=== PATIENT | female | born 1960 | race Caucasian/White ===

== ENCOUNTER → 2016-05-10 | Outpatient (CLI) | payer MEDICARE ==
--- NOTE | 2016-05-10 12:53 | MM ---
Reason for exam: screening (asymptomatic). Last mammogram was performed 1 year and 4 months ago. History: Patient is postmenopausal and is nulliparous. Family history of breast cancer in maternal aunt, breast cancer in cousin, and premenopausal breast cancer in mother at age 40. Took progesterone for 5 years. Took unspecified hormones for 3 years beginning at age 41. Physical Findings: A clinical breast exam by your physician is recommended on an annual basis and results should be correlated with mammographic findings. MG 3D Screening Mammo W/Cad Bilateral CC and MLO view(s) were taken. Prior study comparison: December 30, 2014, bilateral MG screening mammo w CAD. December 16, 2013, bilateral MG screening mammo w CAD. There are scattered fibroglandular densities. Finding: There are typically benign round, regional calcifications in the anterior position of the left breast. There is no discrete abnormality. ASSESSMENT: Benign, BI-RAD 2 RECOMMENDATION: Routine screening mammogram of both breasts in 1 year.
--- NOTE | 2016-05-10 20:56 | WWHP ---
DATE OF SERVICE: 05/10/2016 CHIEF COMPLAINT: Patient is here for her routine gynecologic exam and mammogram. HPI: This is a 55-year-old G0 with an LMP of 2014. The patient is without gynecologic complaints. PAST MEDICAL HISTORY: Arthritis, chronic back problems, Crohn's disease, psoriasis, and elevated cholesterol. MEDICATIONS: 1. Pentasa 500 mg 2 t.i.d. 2. Meloxicam 15 mg daily. 3. Simvastatin 40 mg daily. 4. Zetia 10 mg daily. 5. Pantoprazole 40 mg daily. 6. Lidocaine patch 5% p.r.n. 7. Voltaren 1% gel as directed. 8. Mometasone 0.1% cream as directed. 9. Gabapentin 300 mg b.i.d. ALLERGIES: CODEINE WHICH CAUSED PRURITUS. Past surgical and STOCK CHECKERER histories are unchanged from the 2015 H&P. FAMILY HISTORY: Unchanged from the 2014 H&P. SOCIAL HISTORY: She denies tobacco and alcohol use. She does use medical marijuana. 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 REVIEW OF SYSTEMS: She has gained about 5 pounds over the last year. RESPIRATORY: She is getting over a cold. She denies cardiac or GI problems. PHYSICAL EXAM: Blood pressure 116/77. Height 5 feet 4 inches. Weight 213 pounds. Temperature 98.4, pulse 65. This is a well-developed, well-nourished white female who is alert and oriented x3 in no acute distress. HEENT is within normal limits. NECK: Supple without mass or thyromegaly. CHEST AND LUNGS: Clear to auscultation. HEART: Regular rate and rhythm. Breasts are without mass or discharge. There is an 8 to 9 millimeter small benign-appearing inclusion cyst in the lower aspect of the right breast and this is smooth and firm and nontender and nonerythematous. The patient states it has been there for a long time. Axillary exam is negative for adenopathy. BACK: Negative for CVA tenderness. ABDOMEN: Soft, nontender, without palpable masses and is moderately obese. PELVIC EXAM: Normal external genitalia with minimal atrophy. Cervix and vagina appear normal with minimal atrophy. There is no evidence of prolapse. The uterus is midposition, nongravid size and nontender. There are no palpable adnexal masses or tenderness. Rectovaginal exam is negative for mass or tenderness and is negative for occult blood. EXTREMITIES: Nontender. IMPRESSION: A 55-year-old menopausal female with normal gynecologic exam. PLAN: 1. Pap smear was deferred, since she had normal one less than 2 years ago. 2. Self-breast examination was discussed. 3. Mammogram will be done today. 4. Osteoporosis prevention was discussed. 5. She will return in one year. SABINE
== END | disposition home or self-care (01) ==
LOC: WWCWWP 03-22 09:38
PROVIDERS: ATTEND Obstetrics & Gynecology
DX: Z12.31 Encounter for screening mammogram for malignant neoplasm of breast (principal)
CPT/HCPCS: 77063; G0202

== ENCOUNTER → 2016-10-02 | Outpatient (CLI) | payer OTHER ==
--- NOTE | 2016-10-02 13:24 | US ---
EXAMINATION TYPE: US venous doppler duplex LE LT DATE OF EXAM: 10/02/2016 1:06 PM COMPARISON: NONE CLINICAL HISTORY: M79.662 Pain In Limb. Left leg swelling SIDE PERFORMED: Left TECHNIQUE: The lower extremity deep venous system is examined utilizing real time linear array sonog [place] with graded compression, doppler sonography and color-flow sonography. VESSELS IMAGED: External Iliac Vein (EIV) Common Femoral Vein Deep Femoral Vein Greater Saphenous Vein * Femoral Vein Popliteal Vein Small Saphenous Vein * Proximal Calf Veins (* superficial vessels) Grayscale, color doppler, spectral doppler imaging performed of the deep veins of the left lower extr emity. There is normal flow, compressibility, vascular waveforms left lower extremity. Left Leg: Appears negative for DVT IMPRESSION: No evidence of DVT left lower extremity.
== END ==
LOC: RADUSWWP 12:37
PROVIDERS: ATTEND Family Medicine
DX: I82.402 Acute embolism and thrombosis of unspecified deep veins of left lower extremity (principal)

== ENCOUNTER → 2016-10-17 | Outpatient (CLI) | payer OTHER | END | disposition home or self-care (01) | LOC: LABPAT 09:18 | PROVIDERS: ATTEND Orthopaedic Surgery Orthopaedic Surgery of the Spine | DX: Z01.812 Encounter for preprocedural laboratory examination (principal) | CPT/HCPCS: 36415; 85730; 87070 ==

== ENCOUNTER 2016-10-25 06:07 | Inpatient (IN) | payer MEDICARE, OTHER ==
[2016-10-19 12:38] VITALS: BMI 36.8
[~2016-10-25 06:07] MED LIST: BACITRACIN 50,000 UNIT, POLYMYXIN B 500,000 UNIT in SODIUM CHLORIDE 0.9% IRRIGATIO 1,00... IRRIGATION ONE; DEXAMETHASONE SOD PHOSPHATE 10 MG/ML 1 ML VIAL IV ONE; FAMOTIDINE 20 MG/2 ML VIAL IV PRN; LACTATED RINGERS 1,000 ML IV SCH; LIDOCAINE 1% 20 ML VIAL (10MG/ML) FOR IV START INTRADERMA PRN; SCOPOLAMINE 1.5MG/72HR PATCH TRANSDERM ONE; ceFAZolin 2 GM in SODIUM CHLORIDE 0.9% 100 ML IVPB ONE
[2016-10-25] MEDS ORDERED: ONDANSETRON 4 MG/2 ML VIAL IVP ONE (06:52)
[2016-10-25] MEDS ORDERED: VECURONIUM 10 MG VIAL IV ONE (07:28)
[2016-10-25] MEDS ORDERED: BUPIVACAINE (PF) 0.25% 30 ML VIAL SQ ONE (07:28)
[2016-10-25] MEDS ORDERED: MIDAZOLAM 2 MG/2 ML VIAL ONE (07:28)
[2016-10-25] MEDS ORDERED: LIDOCAINE 0.5%-EPI 1:200,000 50 ML VIAL SQ ONE (07:28)
[2016-10-25] MEDS ORDERED: HEPARIN SODIUM,PORCINE 10,000 UNIT/ML 1 ML VIAL ONE (07:28)
[2016-10-25] MEDS ORDERED: fentaNYL (PF) 50 MCG/ML 2 ML AMP ONE (07:28)
[2016-10-25] MEDS ORDERED: THROMBIN (BOVINE) 5,000 UNIT VIAL TOPICAL ONE (07:28)
[2016-10-25] MEDS ORDERED: SODIUM CHLORIDE 0.9% IRRIG 1,000 ML BTL IRRIGATION ONE (07:28)
[2016-10-25] MEDS ORDERED: ePHEDrine SULFATE/0.9% NACL/PF 50 MG/5 ML SYRINGE IV ONE (07:28)
[2016-10-25] MEDS ORDERED: KETAMINE 10 MG/ML 20 ML VIAL ONE (07:28)
[2016-10-25] MEDS ORDERED: SUCCINYLCHOLINE CHLORIDE 100 MG/5 ML SYR IV ONE (07:28)
[2016-10-25] MEDS ORDERED: LIDOCAINE 1% INJ 10MG/ML (20 ML MDV) ONE (07:28)
[2016-10-25] MEDS ORDERED: GELATIN SPONGE,ABSORB (LARGE) 1 EACH SPONGE TOPICAL ONE (07:28)
[2016-10-25] MEDS ORDERED: PHENYLEPHRINE-0.9% NACL SYG 1 MG/10 ML SYRINGE ONE (07:28)
[2016-10-25] MEDS ORDERED: PROPOFOL 10 MG/ML 20 ML VIAL IV ONE (07:28)
--- NOTE | 2016-10-25 08:43 | XR ---
EXAMINATION TYPE: XR lumbar spine 1V DATE OF EXAM: 10/25/2016 COMPARISON: None HISTORY: 56-year-old female heart replacement TECHNIQUE: Single portable intraoperative crosstable lateral view FINDINGS: Metallic needle projecting along the posterior aspect of a lower lumbar vertebral body. There is a tr ansitional lumbosacral segment. The metal instrument is opposite the superior endplate of the vertebr al body that shows mild anterior subluxation. IMPRESSION: Metallic needle opposite the superior endplate of the lower lumbar vertebral body that shows grade 1 anterolisthesis.
[2016-10-25] MEDS ORDERED: LACTATED RINGERS 1,000 ML IV ONE ×3 (10:30→10:51)
[2016-10-25] MEDS ORDERED: MAGNESIUM HYDROXIDE 2,400 MG/10 ML CUP PO PRN (11:16)
[2016-10-25] MEDS ORDERED: HYDROmorphone PCA 5 MG/25 ML SYRINGE IV PRN (11:16)
[2016-10-25] MEDS ORDERED: DIAZEPAM 5 MG TAB PO PRN (11:16)
[2016-10-25] MEDS ORDERED: HYDROcodone/APAP 5-325MG 1 EACH TAB PO PRN (11:16)
[2016-10-25] MEDS ORDERED: BENZOCAINE/MENTHOL LOZENG 1 EACH LOZENGE MUCOUS MEM PRN (11:16)
[2016-10-25] MEDS ORDERED: HYDROmorphone 1 MG/ML 1 ML SYRINGE IVP PRN (11:16)
[2016-10-25] MEDS ORDERED: traMADol 50 MG TAB PO PRN (11:21)
--- NOTE | 2016-10-25 11:32 | P.OP ---
Date of Procedure: 10/25/16 Preoperative Diagnosis: Grade 3 spondylolisthesis L5-S1, spinal stenosis L4 5 L5-S1, degenerative disc disease, back pain, lower extremity radiculopathy Postoperative Diagnosis: Same Procedure(s) Performed: Implants: Anesthesia: GETA Pathology: none sent Condition: stable Disposition: PACU Indications for Procedure: Operative Findings: Description of Procedure: BRIEF OPERATIVE NOTE Preoperative Diagnosis: Grade 3 spondylolisthesis L4 5, spinal stenosis L3 4 L4 5, degenerative disc disease, low back, lower extremity radiculopathy Postoperative Diagnosis: Same Procedure: Laminectomy and decompression with wide bilateral foraminotomy and facetectomy L4 5 L3 4 Posterior lateral decompression and fusion L3 4 L4 5 Transforaminal lumbar interbody fusion for a 360 fusion L3 4 L4 5 Discectomy for decompression L3 4 L4 5 Placement of interbody graft L3 4 L4 5 Local autogenous bone grafting Bone marrow aspiration via the pedicles at L3 4 and 5 Use of Cell Saver Use of bone graft extenders Use of neuro monitoring Surgeon: Dr. Snowden Human Capital Consultant: Moreno PEÑA who is present throughout the entire the case persistence during positioning, dissection, exposure, visualization, and all crucial elements of the case as well as closure. Anesthesia: General anesthesia Estimated blood loss: Approximately 350 mL with greater than 100 given back through Cell Saver Complications: None apparent Components implanted: K2[employer] [place] pedicle screw system with 6 screws measuring 6.5 mm in diameter to rods one cross-link and [place] interbody cages with osteo-amp bone sponge and fibrous cancellus bone to supplemental local autogenous bone graft , Disposition: To recovery room in good stable condition. OPERATIVE INDICATIONS The patient has had long-standing issues in their lower back and lower extremities. she is found have a severe spondylolisthesis at L4 5. She had complete disc space loss at that level and evidence of severe stenosis at L3 4 and L4 5 I correlated well with her low back and lower extremity symptoms. She is having worsening symptoms and progressive debility due to her low back. He is The patient has been through conservative treatment. We discussed various treatment options including surgery, and the patient wishes to proceed with surgery We discussed the risk, patient's alternatives and benefits of surgery including but not limited to, risk of bleeding risk of infection, risk of need for further surgery, risk of decreased, loss of motion, muscle function, malunion nonunion, hardware failure, nerve damage, paralysis, heart attack, blindness and . OPERATIVE SUMMARY After discussing all the risks, patient alternatives and benefits at length, the patient elected to proceed with surgical intervention, signed informed consent, and presented for their procedure. The patient was seen and examined in the preoperative holding area and the surgical site was marked. The patient was given antibiotics and brought to the operating room. The patient was sedated and intubated by anesthesia in standard fashion. The patient was positioned on to the operating room table in a prone position on the appropriate frame which was well-padded and well molded. We were careful to pad any bony prominences and pressure points. We were careful to maintain the patient's cervical spine and good neutral alignment and position throughout. The patient was prepped and draped in a normal standard fashion. An appropriate timeout and keystone protocol performed. We were able to proceed with the surgery. The local wound area was infiltrated with local anesthetic. An incision was made at the midline longitudinally over the appropriate levels at L3 4 and L4 5 . Dissection was taken down subcutaneously to the level of the fascia which was split midline. Dissection was taken over the lamina bilaterally over the facet joints and to the transverse processes. Intraoperative x-ray was taken which showed a marker at the appropriate level at L4 and it seemed as though the L5 level may have been a transitional level with S1 as it did seem to have some evidence of formation of sacral ala for the purpose of the case and inconsistency with the MRI reading refer to the most caudal level as L5. With the appropriate level positively confirmed, we were able to proceed with placement of the pedicle holes and screws. The patient had all their twitches back. The wound was copiously irrigated and suctioned dry as had been done periodically throughout the case. Screw holes were established similarly at each level. A sharp awl was used to establish the starting hole. It was palpated and found to have good for ramey and good base. A monitored Steffee probe was used to establish the pedicle hole. It was positioned so there was no stimulation at 12 mA. The hole was palpated and found to have good for ramey and a good base. The hole was tapped with the appropriate sized tap. The transverse process or sacral ala was decorticated with a high-speed bur. at the pedicle holes and was able to pull some bone marrow aspirate to be used to mix with the allograft bone later in the case. I was able to use these holes to place the appropriate size screw and good alignment and good position with good bony purchase. When the screws were inserted there were stimulated, and found to have no stimulation at 20 mA. I was able to turn my attention to the decompression. the patient had an obvious Pimentel fragment and spondylolysis with spondylolisthesis at L4 5. Degenerative the Pimentel fragment was removed and used for local autogenous bone grafting. This gave good central decompression however there was severe foraminal decompression at both levels and I had to perform wide bilateral foraminotomies remove large osteophytes and partial facetectomy bilaterally to get good posterior decompression. decompression was performed with a combination of rongeurs, curettes, Kerrison rongeurs and a ball-tip feeler. All of the bone that was removed was stripped and morcellized for use as autogenous bone graft later in the case. I was able to obtain good central decompression as well as wide bilateral foraminal decompression. There is no evidence of dural tear or leak. Good hemostasis was maintained. The wound was irrigated and suctioned dry. I performed a complete facetectomy at the appropriate level on the most symptomatic side on the left. . All bone that was removed was saved for local autogenous bone grafting. I was able to gain access to the disc space at the appropriate level/levels. Good hemostasis was maintained. I was able to protect the neurologic structures. Note was made of some disc protrusion. We were able to get space at L4 5 nicely opened. A discectomy was performed. This provided further decompression. I was also able to perform complete discectomy and endplate preparation with a combination of pituitary curettes, rasps and scrapers. With the interbody space prepared, I was able to do appropriate sizing. The appropriate size cage was chosen. The wound was irrigated and suctioned dry. The interbody space was packed with local autogenous bone graft and a small portion of bone graft substitute, as was the cage itself. Protecting the soft tissue structures, I was able place the cage in good alignment and good position with good fit and fill. There is no evidence of extrusion of the graft material nor protrusion of the interbody device. The wound was irrigated and suctioned dry. this was done similarly at L3 4 after L4 5 was done. During the disc space expiration at L3 4 I did sandoval through the anterior annulus and was some bleeding into the disc space at that point. The patient's blood pressure was monitored closely with anesthesia and there was good stability in her blood pressure so there was a short-term drop of her blood pressure that lasted only a couple of minutes and then recovered well and stayed stable. There is no further bleeding into the wound site and appear to be stable and we're able to carry on. With the hardware intact, intraoperative x-ray was again taken which showed good alignment and position of the hardware at the appropriate levels at L3 4 and 5. We were then able to measure, contour and place the rods and appropriate hardware bilaterally. I was able to place capcrews, tighten them down, and torque them off appropriately. The sheared portion was counted and accounted for. With this intact I was able to place the local otitis bone graft with additional bone graft enhancer as necessary into the posterior lateral gutters bilaterally. With the bone graft intact, a stable construct, and good decompression at the appropriate levels, we were able to proceed with closure. Good hemostasis was maintained. There is no evidence of dural tear or leak. The fascia was closed for a watertight closure. The subcutaneous tissue was closed over a superficial drain. The subcuticular tissue was closed with absorbable suture. The wound was cleaned and dried and dressed with the appropriate dressing. The drapes were broken down. The patient was gently rolled back onto their hospital bed being careful to maintain their cervical spine and good neutral alignment and position. They were woken up by anesthesia , extubated, and brought to the recovery room in good stable condition. The patient will be admitted to the hospital for appropriate postoperative care , medical management and monitoring. We will continue to follow them closely about the postoperative course
[2016-10-25] MEDS: HYDROmorphone 1 MG/ML 1 ML SYRINGE IVP PRN ×5 (11:55→12:27)
--- NOTE | 2016-10-25 12:12 | XR ---
EXAMINATION TYPE: XR lumbar spine 2 or 3V DATE OF EXAM: 10/25/2016 COMPARISON: Earlier today HISTORY: 56-year-old female heart replacement TECHNIQUE: AP and crosstable lateral views FINDINGS: Interval posterior and interbody fusion hardware placement in the lower lumbar spine. There is a carter sitional lumbosacral segment again demonstrated. For the purposes of this exam, it will be denoted as a sacralized L5. Stable grade 1 anterolisthesis at L4-L5. Orthopedic hardware appears uncomplicated. IMPRESSION: Uncomplicated appearance to the posterior and interbody fusion at the lower lumbar spine/lumbosacral junction. Transitional segment noted. Stable grade 1 anterolisthesis above the transitional segment.
[2016-10-25] MEDS ORDERED: HYDROmorphone 1 MG/ML 1 ML SYRINGE IVP ONE (12:24)
[2016-10-25 13:50] LABS: Basophils % (A) 0 %; CH 31.1; CHCM 32.5; Eosinophils % (A) 0 %; HCT 38.1 % (34.0-46.0); HDW 2.43; Luc % (Auto) 1; Lymphocytes # (A) 0.8 k/uL (1.0-4.8); Lymphocytes % (A) 6 %; MCH 30.4 pg (25.0-35.0); MCHC 31.7 g/dL (31.0-37.0); Mean Platelet Volume 8.1; Monocytes # (A) 0.5 k/uL (0-1.0); Monocytes % (A) 4 %; Neutrophils # (A) 11.8 k/uL (1.3-7.7); Neutrophils % (A) 89 %; RBC 3.96 m/uL (3.80-5.40); RDW 14.5 % (11.5-15.5); WBC 13.2 k/uL (3.8-10.6); WBC (Perox) 13.69
[2016-10-25] MEDS: BALSALAZIDE DISODIUM 750 MG CAPSULE PO SCH ×2 (18:06→20:30)
[2016-10-25] MEDS: SODIUM CHLORIDE 0.9% 1,000 ML IV SCH (18:07)
[2016-10-25] MEDS: ceFAZolin 2 GM in SODIUM CHLORIDE 0.9% 100 ML IVPB SCH ×2 (18:11→23:25)
[2016-10-25] MEDS: DOXEPIN 25 MG CAP PO SCH (20:31)
[2016-10-26] MEDS ORDERED: NALOXONE 0.4 MG/ML 1 ML VIAL IV PRN (01:04)
[2016-10-26] MEDS: HYDROmorphone PCA 5 MG/25 ML SYRINGE IV PRN ×3 (01:17→23:41)
[2016-10-26] MEDS: SODIUM CHLORIDE 0.9% 1,000 ML IV SCH ×2 (04:09→21:27)
[2016-10-26 06:58] LABS: Basophils % (A) 0 %; CH 30.4; CHCM 32.6; Eosinophils # (A) 0.1 k/uL (0-0.7); Eosinophils % (A) 1 %; HCT 31.3 % (34.0-46.0); HDW 2.49; HGB 10.1 gm/dL (11.4-16.0); Luc # (Auto) 0.17; Luc % (Auto) 2; Lymphocytes # (A) 1.1 k/uL (1.0-4.8); Lymphocytes % (A) 14 %; MCH 30.2 pg (25.0-35.0); MCHC 32.2 g/dL (31.0-37.0); MCV 93.7 fL (80.0-100.0); Mean Platelet Volume 7.1; Monocytes # (A) 0.5 k/uL (0-1.0); Monocytes % (A) 6 %; Neutrophils # (A) 6.3 k/uL (1.3-7.7); Neutrophils % (A) 77 %; RBC 3.34 m/uL (3.80-5.40); RDW 14.2 % (11.5-15.5); WBC 8.2 k/uL (3.8-10.6); WBC (Perox) 8.05
[2016-10-26 07:13] LABS: Anion Gap 4 mmol/L; Blood Urea Nitrogen 12 mg/dL (7-17); Carbon Dioxide 30 mmol/L (22-30); Chloride 104 mmol/L (98-107); Glucose 111 mg/dL (74-99); Non-African American GFR(MDRD) >60 (>60 ml/min/1.73 sqM); Potassium 4.1 mmol/L (3.5-5.1); Sodium 138 mmol/L (137-145)
[2016-10-26] MEDS: BALSALAZIDE DISODIUM 750 MG CAPSULE PO SCH ×3 (07:40→21:29)
[2016-10-26] MEDS: PANTOPRAZOLE 40 MG TABLET PO SCH (07:40)
[2016-10-26] MEDS: EZETIMIBE 10 MG TAB PO SCH (07:40)
[2016-10-26] MEDS: HYDROmorphone 1 MG/ML 1 ML SYRINGE IVP PRN ×3 (07:40→19:13)
[2016-10-26] MEDS: ATORVASTATIN 20 MG TAB PO SCH (07:40)
[2016-10-26] MEDS: ceFAZolin 2 GM in SODIUM CHLORIDE 0.9% 100 ML IVPB SCH (07:43)
[2016-10-26] MEDS: SENNOSIDES-DOCUSATE SODIUM 1 EACH TAB PO SCH (07:43)
--- NOTE | 2016-10-26 13:15 | CONS ---
This is a 56-year-old white female that was admitted for lumbar surgery. She had a transforaminal lumbar interbody L3-L4, L4-L5 fixation. She had severe back pain for many years and after exhausting all other entities including physical therapy, epidural injections patient had surgery. She has a past medical history of surgery including bilateral carpal tunnel and also epidural injections x3. Her basic medical history is that of: 1. Severe lumbar degenerative disc disease and instability. 2. GE reflux. 3. Hyperlipidemia. 4. Ulcerative colitis. SOCIAL HISTORY: She is a nonsmoker, but she does smoke marijuana from time to time. No alcohol. No other drugs. Her medications include simvastatin 20 daily, Mobic 15 daily, Lidoderm patch to lower back daily, Protonix daily, Voltaren gel apply daily to her hands, Zetia 10 mg a day, Pentasa 500 mg three times a day, Tramadol 50 mg 1 to 2 every 6 hours for pain and ( ) 20 mg at bedtime. REVIEW OF SYSTEMS: CARDIOPULMONARY: No shortness of breath, no chest pain, no orthopnea, no paroxysmal nocturnal dyspnea. GI: No hematemesis, melena, hematochezia. Negative bleeding. : Negative. NEUROMUSCULAR: Painful back with decreased strength in her legs. Blood pressure was 130/80, temperature is 98.6, heart rate is 65, respiratory rate is 16. EYES: Pupils are equal, round and reactive to light and accommodation. ENT: Shows tympanic membranes and pharynx to be negative. NECK: Supple with midline trachea. CHEST: Essentially clear to auscultation. HEART: Sinus rhythm with no murmur. ABDOMEN: Soft with decreased bowel sounds bilaterally in all four quadrants, no palpable masses. LOWER EXTREMITIES: She has no Homans bilaterally. Lab work shows hemoglobin 10 from 12. Basic chem-17 is within normal limits. WBC 8.2. ASSESSMENT: 1. Post surgery day 1 of the lumbar spine. 2. History of gastroesophageal reflux. 3. History of hyperlipidemia, which has been stable. 4. Generalized osteoarthritis. 5. Ulcerative colitis. PLAN: Patient is stable at this point. Pain control is adequate. Will follow her accordingly. , thank you for the consult. [facility]
[2016-10-26] MEDS: ONDANSETRON 4 MG/2 ML VIAL IVP PRN (15:52)
--- NOTE | 2016-10-26 17:27 | P.PN ---
Progress Note - Text Postoperative day #1 Patient is seen and examined today at bedside. The patient has some pain around the surgical site as expected, but she has been getting up and around and feels her back has made significant improvement and had a significant change with her surgery already. Pain is being controlled with medication. She is able tolerate her soft diet and regular diet. She does have history of Crohn's disease Physical Exam Afebrile with stable vital signs her blood pressure has remained stable without any drop Abdomen is soft nontender. Chest has good excursion deep and space expiration she is nontender to palpation of her abdomen she has no rebound rigidity or guarding The incision site is clean dry and intact. No erythema there is no purulence. The drain is intact Extremities have not had neurologic change from prior to surgery. She has sustained dorsal flexion plantarflexion and EHL intact Calves and thighs were soft nontender without evidence of DVT. Assessment/Plan Postoperative day #1 status post decompression and fusion L3 4 L4 5 for her severe spondylolisthesis and spinal stenosis Patient is progressing as expected from the surgery. She has made good progress with her mobility already. Her vital signs or staying stable without any evidence of decreased or bleeding. We will continue to increase the patient's mobilization with therapy. She does have history of Crohn's disease and prefers to have immature shakes with meals and we will order that for her We will continue pain control with oral or IV medications. We'll continue to follow patient closely.
[2016-10-26] MEDS: DOXEPIN 25 MG CAP PO SCH (21:29)
[2016-10-27 07:09] LABS: Basophils % (A) 0 %; CH 30.8; CHCM 32.5; Eosinophils % (A) 0 %; HCT 27.1 % (34.0-46.0); HDW 2.48; HGB 8.8 gm/dL (11.4-16.0); Luc # (Auto) 0.19; Luc % (Auto) 2; Lymphocytes % (A) 10 %; MCH 31.1 pg (25.0-35.0); MCHC 32.6 g/dL (31.0-37.0); MCV 95.4 fL (80.0-100.0); Monocytes # (A) 0.7 k/uL (0-1.0); Monocytes % (A) 7 %; Neutrophils % (A) 81 %; RBC 2.85 m/uL (3.80-5.40); RDW 14.6 % (11.5-15.5); WBC 9.9 k/uL (3.8-10.6); WBC (Perox) 9.61
[2016-10-27] MEDS: BALSALAZIDE DISODIUM 750 MG CAPSULE PO SCH ×3 (07:46→22:00)
[2016-10-27] MEDS: ATORVASTATIN 20 MG TAB PO SCH (07:46)
[2016-10-27] MEDS: PANTOPRAZOLE 40 MG TABLET PO SCH (07:46)
[2016-10-27] MEDS: EZETIMIBE 10 MG TAB PO SCH (07:46)
[2016-10-27] MEDS: SENNOSIDES-DOCUSATE SODIUM 1 EACH TAB PO SCH (07:47)
--- NOTE | 2016-10-27 09:07 | P.PN ---
Progress Note - Text Orthopedic Spine Patient is a pleasant 56-year-old female who is seen and examined at the bedside following posterior lateral decompression and fusion performed Sunday. Patient states they are doing well postsurgically. She does continue to have some pain at the surgical site, which is expected. She states her lower extremities feels significantly better postsurgically. She is not currently spearing sitting lower extremity radiculopathy. She not currently experiencing any lower extremity swelling. She has been able to ambulate to the restroom without significant difficulty. She has continued to use her POWER PLANT OPERATOR and receive IV and oral pain medications for pain control. She does feel she is making some improvements in terms of her pain but states she continues to have significant pain in the lumbar spine. She does have a history of Crohn's disease. She has not been eating much food. She has been taking in Ensure. She is having some abdominal discomfort most significant right lower quadrant and feels she may need to have a bowel movement soon but has been unable to do so at this point postsurgically. Currently does not complain of nausea, vomiting, fever, or chills. Patient states her pain has been adequately controlled. Patient is eating and voiding freely without difficulty. Blood pressures have continued to remain stable without evidence of significant decrease. Blood pressures taken on 10/27/2016 have been 137/63 and 127/68. Physical Exam Lumbar Fusion: Status post surgical day number 2 Patient is awake, alert, and oriented 3 Vital signs stable Good chest excursion with deep inspiration and expiration Abdomen soft; no obvious distention; some comfort with palpation right lower quadrant Dorsiflexion, plantarflexion, and extensor hallucis longus positive sustained bilaterally No signs or symptoms of DVT; no calf pain; pneumatic cuffs not currently intact bilateral lower extremities Dressing is clean, dry, and intact; no erythema, purulence, or signs of infection Dressing is removed during physical examination changed to nonstick Telfa and Tegaderm No active drainage at the incision site or Hemovac drain site Hemovac drain well secure; Hemovac drain discontinued during physical examination Neurovascularly intact bilaterally lower extremities Pertinent studies: Pertinent studies taken on 10/25/2016: WBC 13.2 Hemoglobin 12.0 Neutrophils 11.8 Pertinent studies taken on 10/26/2016: W BC 8.2 Hemoglobin 10.1 Neutrophils 0.3 Pertinent studies taken on 10/27/2016: WBC 9.9 Hemoglobin 8.8 Neutrophils 8.0 Assessment: Posterior lateral decompression and fusion L3-4 and L4-5 Transforaminal lumbar interbody fusion L3-4 and L4-5 History of Crohn's disease Plan: 1. Ambulate as tolerated; work with Physical Therapy to increase mobilization 2. Continue pain control with IV and oral medications; we will plan to discontinue the POWER PLANT OPERATOR and begin weaning down the IV pain medication in anticipation for discharge home over the next 1-2 days 3. Dressing changed to Telfa and Tegaderm; Hemovac drain discontinued 4. Medical management can continue to manage patient for patient's other medical issues 5. Due to her current inability to have a bowel movement postsurgically and history of Crohn's disease, we'll plan to increase her Senokot to 1 tab twice per day for constipation; she may continue to take milk of magnesia as prescribed as needed for constipation 6. We will also continue to watch her hemoglobin level as this level has dropped from 12.0, to 10.0, down to 8.8 over the past lab draws 7. We will continue to follow the patient closely; if the patient continues to progress, we will plan for her discharge home over the next 1-2 days once we have been able to discontinue IV narcotic pain medication 8. Patient can follow-up with Moreno Schwarz PA-C or Dr. Keanu Snowden at [facility] in 2-3 weeks following discharge
[2016-10-27] MEDS: HYDROmorphone 1 MG/ML 1 ML SYRINGE IVP PRN ×3 (11:01→20:16)
[2016-10-27] MEDS: ONDANSETRON 4 MG/2 ML VIAL IVP PRN ×2 (11:05→15:34)
[2016-10-27] MEDS: HYDROcodone/APAP 5-325MG 1 EACH TAB PO PRN (12:39)
[2016-10-27] MEDS: SENNOSIDES-DOCUSATE SODIUM 1 EACH TAB PO PRN (15:45)
[2016-10-27] MEDS ORDERED: POLYETHYLENE GLYCOL 3350 17 GM POWD.PACK PO STA (16:19)
[2016-10-27] MEDS ORDERED: ACETAMINOPHEN TAB 500 MG TAB PO PRN (19:50)
[2016-10-27] MEDS ORDERED: BISACODYL 10 MG SUPP RECTAL STA (19:54)
[2016-10-27] MEDS ORDERED: metroNIDAZOLE-NS PMX 500 MG in SALINE 1 100ML.BAG IVPB SCH (22:00)
[2016-10-27] MEDS: metroNIDAZOLE-NS PMX 500 MG in SALINE 1 100ML.BAG IVPB SCH (22:00)
[2016-10-27] MEDS: DOXEPIN 25 MG CAP PO SCH (22:00)
[2016-10-27] MEDS: SODIUM CHLORIDE 0.9% 1,000 ML IV SCH (23:34)
[2016-10-28] MEDS: CIPROFLOXACIN HCL 500 MG TAB PO SCH ×3 (01:06→21:46)
[2016-10-28] MEDS: HYDROcodone/APAP 5-325MG 1 EACH TAB PO PRN ×2 (01:12→08:16)
[2016-10-28] MEDS: metroNIDAZOLE-NS PMX 500 MG in SALINE 1 100ML.BAG IVPB SCH ×2 (04:48→12:30)
[2016-10-28] MEDS: SODIUM CHLORIDE 0.9% 1,000 ML IV SCH ×2 (06:31→20:54)
[2016-10-28 06:42] LABS: Basophils % (A) 0 %; CHCM 32.7; Eosinophils % (A) 1 %; HCT 27.6 % (34.0-46.0); HDW 2.58; HGB 8.8 gm/dL (11.4-16.0); Luc # (Auto) 0.14; Luc % (Auto) 2; Lymphocytes # (A) 0.9 k/uL (1.0-4.8); Lymphocytes % (A) 12 %; MCH 30.4 pg (25.0-35.0); MCHC 31.9 g/dL (31.0-37.0); MCV 95.2 fL (80.0-100.0); Monocytes # (A) 0.5 k/uL (0-1.0); Monocytes % (A) 7 %; Neutrophils # (A) 5.8 k/uL (1.3-7.7); Neutrophils % (A) 79 %; RDW 14.5 % (11.5-15.5); WBC 7.4 k/uL (3.8-10.6); WBC (Perox) 7.81
--- NOTE | 2016-10-28 07:32 | PN ---
A 56 -year-old white female came in and had lumbar surgery by Dr. Snowden and she says she is much improved today with much less pain. She still has not had a bowel movement. Minimal amount of gas. Her surgery was a post decompression and fusion of L3-4, L4-L5 for severe spondylolisthesis and spinal stenosis. At this period of time, she said she was feeling much better. Laboratory today showed hemoglobin down to 8.8 and her WBC was 9.9. Review of systems: Cardiopulmonary: No shortness of breath. No chest pain. No orthopnea. No paroxysmal nocturnal dyspnea. GI: No hematemesis, melena, hematochezia. Flatulence but no bowel movement. Her oral intake has just been liquids and very minimal soft food. has been normal. Neuromuscular: She says she has much less discomfort going down her legs. Still having a fair amount of back pain. Integumentary is negative. Endocrine is negative. Vital signs: Blood pressure 127/68, heart rte is in the 90s. Temperature 98.5. Respiratory rate is 18. Eyes: PERRLA. Some decrease in pupil conjunctivae. ENT is within normal limits with dry mouth. Neck is supple with midline trachea. Chest is essentially clear to auscultation. Heart is sinus rhythm. Abdomen is soft. Decent bowel sounds. No palpable organomegaly. No masses. Lower extremities has minimal swelling. Negative Homans bilaterally. ASSESSMENT: 1. Postop decompression fusion L3, L4, L4-L5 for severe spondylolisthesis and spinal stenosis. 2. History of Crohns disease which is stable at this time. 3. Gastroesophageal reflux disease. 4. Hyperlipidemia. The patient seems to be doing well. I reviewed all her medications from yesterday. They are the same. We will follow her accordingly with pain control with the plan of probable discharge in the a.m. MTDD
[2016-10-28] MEDS: PANTOPRAZOLE 40 MG TABLET PO SCH (08:17)
[2016-10-28] MEDS: ATORVASTATIN 20 MG TAB PO SCH (08:17)
[2016-10-28] MEDS: BALSALAZIDE DISODIUM 750 MG CAPSULE PO SCH ×3 (08:17→21:47)
[2016-10-28] MEDS: EZETIMIBE 10 MG TAB PO SCH (08:18)
--- NOTE | 2016-10-28 10:57 | P.DS ---
Providers Date of admission: 10/25/16 06:07 Expected date of discharge: 10/28/16 Attending physician: Charisma Snowden Consults: 10/25/16 11:16 Consult Physician Routine Consulting Provider: Michael Pascal Consult Reason/Comments: Medical management Do you want consulting provider notified?: Yes Primary care physician: Michael Pascal - Discharge Diagnosis(es) (1) Spondylolisthesis Current Visit: Yes Status: Acute Hospital Course: This is a 56-year-old female with known history of severe spondylolisthesis at L4/5 that was causing progressive debility. The patient presents for evaluation. After discussion and consideration patient elects to proceed with posterior lateral decompression and fusion. The patient is seen preoperatively by Dr. Snowden and cleared for surgery. Patient is admitted to [facility] on 10/25/2016 for posterior lateral decompression and fusion. The procedures performed without complication or sequelae. The patient is doing well postoperatively. Labs and vital signs are stable on day of discharge. On day of discharge patient's dressing is clean, dry and intact. There is minimal erythema. There is no drainage noted at this time. Neurovascular status to bilateral lower extremities are intact. Calves are soft and nontender. Patient is discharged home in good condition. Please see med rec for accurate list of home medications. Plan - Discharge Summary New Discharge Prescriptions: New Hydrocodone/Acetaminophen [[place] 5-325] 1 - 2 each PO Q6HR PRN #90 tab PRN Reason: Pain Sennosides-Docusate Sodium [Senokot-S] 1 tab PO BID PRN #60 tablet PRN Reason: Constipation No Action Lidocaine 5% Patch [Lidoderm] 1 patch TOPICAL DAILY Diclofenac Sodium Gel [Voltaren Gel] 1 applic TOPICAL BID PRN PRN Reason: Pain traMADol HCL [Ultram] 50 mg PO Q6HR PRN PRN Reason: Pain Meloxicam [Mobic] 15 mg PO DAILY Ezetimibe [Zetia] 10 mg PO DAILY Doxepin [SINEquan] 25 mg PO HS Simvastatin [Zocor] 40 mg PO DAILY Mesalamine [Pentasa] 500 mg PO TID Pantoprazole Sodium [Protonix] 40 mg PO DAILY Discharge Medication List Diclofenac Sodium Gel [Voltaren Gel] 1 applic TOPICAL BID PRN 10/19/16 [History] Doxepin [SINEquan] 25 mg PO HS 10/19/16 [History] Ezetimibe [Zetia] 10 mg PO DAILY 10/19/16 [History] Lidocaine 5% Patch [Lidoderm] 1 patch TOPICAL DAILY 10/19/16 [History] Meloxicam [Mobic] 15 mg PO DAILY 10/19/16 [History] Mesalamine [Pentasa] 500 mg PO TID 10/19/16 [History] Pantoprazole Sodium [Protonix] 40 mg PO DAILY 10/19/16 [History] Simvastatin [Zocor] 40 mg PO DAILY 10/19/16 [History] traMADol HCL [Ultram] 50 mg PO Q6HR PRN 10/19/16 [History] Hydrocodone/Acetaminophen [[place] 5-325] 1 - 2 each PO Q6HR PRN #90 tab 10/27/16 [Rx] Sennosides-Docusate Sodium [Senokot-S] 1 tab PO BID PRN #60 tablet 10/27/16 [Rx] Follow up Appointment(s)/Referral(s): Moreno Schwarz, FAHAD [PHYSICIAN TOOLING INSPECTOR] - 2 Weeks (Patient may follow-up with Moreno Schwarz PA-C or Dr. Keanu Snowden at [facility] in 2-3 weeks following discharge. ) [facility] Visiting Nurse, [NON-STAFF] - 1 Week Activity/Diet/Wound Care/Special Instructions: 1. Patient may shower Tegaderm dressing intact. 2. Patient may remove Tegaderm dressing in 3 days and shower without a dressing at that time. 3. Patient should keep Steri-Strips intact and allow them to fall off naturally. 4. Patient should refrain from driving until at least after their first follow- up appointment in the office. 5. Patient should avoid excessive bending, twisting, and lifting; no lifting greater than 10 pounds 6. Do not soak in tub Discharge Disposition: HOME SELF-CARE
[2016-10-28] MEDS: SENNOSIDES-DOCUSATE SODIUM 1 EACH TAB PO PRN (16:19)
--- NOTE | 2016-10-28 18:32 | PN ---
56-year-old white female that was admitted and had a decompression fusion L3-L4 , L4-L5 for severe spondylolisthesis and spinal stenosis. She responded quite well during that period of time. The control of pain was to the point that she was put on oral medications. Last p.m. she came down with a fair amount of right lower abdominal pain along with low grade fever. She also had an ileus during that period of time. She responded to the Fleets enema with minimal to moderate amount of stool and she had much less pain. Also, at that time period of time during the history of her Crohn's disease which is mostly located in her right colon and actually in the distal ileum, she was started initially on Flagyl and Cipro. This morning she is much more comfortable but still has a fair amount of discomfort. She did have several bowel movements also. REVIEW OF SYSTEMS: CARDIOPULMONARY: She has no shortness of breath, no chest pain, no orthopnea, no chest pain or orthopnea. No paroxysmal nocturnal dyspnea. GI: She has had no hematemesis, melena, hematochezia. She is having some flatulence and she did have two small bowel movements. The discomfort in her right flower quadrant is much less. : Normal. NEUROMUSCULAR: She says she has much less discomfort in her legs since the surgery and her back is actually tolerable with her pain medication. ENDOCRINE: Negative. INTEGUMENT: Negative. PHYSICAL EXAM: VITAL SIGNS: Blood pressure 127/68, heart rate 90's, temperature 98.5, respiratory ratge 18. EYES: Pupils are equal, round, react to light and accommodation. ENT: Within normal limits with a dry mouth. NECK: Supple. Midline trach. He had no palpable masses. Good carotid upstroke. CHEST: Essentially clear to auscultation. HEART: Sinus rhythm. ABDOMEN: Soft. Much less distended. Some minimal amount of pain in the right lower quadrant. She does have fair bowel sounds today which are better than yesterday. No masses. No rebound tenderness. LOWER EXTREMITIES: With minimal amount of swelling. Negative Homans. BACK: Incision is clean. ASSESSMENT: 1. Postoperative decompression L3-L4, L4-L5 with persevere spondylolisthesis and spinal stenosis. 2. History of Crohn's disease with questionable flare up. Rule out more possibility of just being an ileus. 3. Gastroesophageal reflux. 4. Hyperlipidemia. PLAN: Will continue the antibiotics another day. Will have blood cultures done tomorrow. We are getting her up and walking. We have her on Milk of Magnesia today along with Colace and if everything continues to improve she will be discharged in the morning. SABINE
[2016-10-28] MEDS ORDERED: NA PHOS,M-B/NA PHOS,DI-BA 133 ML ENEMA RECTAL ONE (19:30)
[2016-10-28] MEDS ORDERED: POLYETHYLENE GLYCOL 3350 17 GM POWD.PACK PO ONE (19:30)
[2016-10-28] MEDS: DOXEPIN 25 MG CAP PO SCH (21:46)
[2016-10-28] MEDS: metroNIDAZOLE 500 MG TAB PO SCH (22:53)
[2016-10-29] MEDS ORDERED: ZOLPIDEM 5 MG TAB PO STA (01:39)
[2016-10-29] MEDS: HYDROcodone/APAP 5-325MG 1 EACH TAB PO PRN (05:26)
[2016-10-29 07:01] LABS: Basophils % (A) 0 %; CH 30.5; CHCM 32.7; Eosinophils % (A) 1 %; HCT 26.3 % (34.0-46.0); HDW 2.72; HGB 8.6 gm/dL (11.4-16.0); Luc # (Auto) 0.17; Luc % (Auto) 2; Lymphocytes # (A) 0.8 k/uL (1.0-4.8); Lymphocytes % (A) 11 %; MCH 30.4 pg (25.0-35.0); MCHC 32.6 g/dL (31.0-37.0); MCV 93.5 fL (80.0-100.0); Mean Platelet Volume 7.8; Monocytes # (A) 0.5 k/uL (0-1.0); Monocytes % (A) 7 %; Neutrophils # (A) 5.8 k/uL (1.3-7.7); Neutrophils % (A) 79 %; RBC 2.81 m/uL (3.80-5.40); WBC 7.3 k/uL (3.8-10.6); WBC (Perox) 7.68
[2016-10-29] MEDS: PANTOPRAZOLE 40 MG TABLET PO SCH (08:19)
[2016-10-29] MEDS: BALSALAZIDE DISODIUM 750 MG CAPSULE PO SCH (08:19)
[2016-10-29] MEDS: ATORVASTATIN 20 MG TAB PO SCH (08:19)
[2016-10-29] MEDS: CIPROFLOXACIN HCL 500 MG TAB PO SCH (08:19)
[2016-10-29] MEDS: metroNIDAZOLE 500 MG TAB PO SCH (08:20)
[2016-10-29] MEDS: EZETIMIBE 10 MG TAB PO SCH (08:21)
[2016-10-29 10:07] VITALS: BP 129/69; PULSE 106; RESP 15; TEMP 97.6
--- NOTE | 2016-10-29 10:57 | P.DS ---
Providers Date of admission: 10/25/16 06:07 Attending physician: Charisma Snowden Consults: 10/25/16 11:16 Consult Physician Routine Consulting Provider: Michael Pascal Consult Reason/Comments: Medical management Do you want consulting provider notified?: Yes Primary care physician: Michael Pascal Hospital Course: The patient presented on the day of admission as per her operative note. She says she is feeling better daily. She is ambulatory in her room with her walker. She has been able have a bowel movement. She is tolerating her regular diet. She says her back is feeling better and her legs are not having significant radiculopathy at this point. She is not feeling lightheaded. She' s not having any abdominal pain. Physical Exam The incision site is clean dry and intact. There is no erythema no drainage. There is no purulence no evidence of infection. Her incision sites are healing appropriately. There is no purulence. There is no open wound. There is no drainage Abdomen soft and nontender. Chest has good excursion with deep inspiration and expiration. The patient has active and passive range of motion intact at the upper and lower extremities. There is no acute change in neurologic status. Hospital Course Postoperative day #4 status post decompression and fusion L3 4 L4 5 for her severe spondylolisthesis with spinal stenosis. The patient has been making good progress postoperatively. She is not having any abdominal symptoms. Her blood pressures remained stable. Her hemoglobin is stable. They have completed the prophylactic antibiotics without any signs or symptoms of infection. The patient has been able to advance their diet, and is tolerating diet adequately. The pain was initially controlled with IV medications and is now controlled appropriately with oral medications. The patient has been able to increase their mobilization. The patient has progressed appropriately. I think they are in good stable condition for discharge today. They will be sent home with appropriate prescriptions. I answered their questions to the best of my ability in a language that they can understand and they are agreeable with the plan. I reviewed the case with Dr. Pascal as well and he is in agreement. They will follow up as directed in approximately 2 weeks or sooner if she is having any problems. Patient Condition at Discharge: Good Plan - Discharge Summary New Discharge Prescriptions: New Hydrocodone/Acetaminophen [[place] 5-325] 1 - 2 each PO Q6HR PRN #90 tab PRN Reason: Pain Sennosides-Docusate Sodium [Senokot-S] 1 tab PO BID PRN #60 tablet PRN Reason: Constipation No Action Lidocaine 5% Patch [Lidoderm] 1 patch TOPICAL DAILY Diclofenac Sodium Gel [Voltaren Gel] 1 applic TOPICAL BID PRN PRN Reason: Pain traMADol HCL [Ultram] 50 mg PO Q6HR PRN PRN Reason: Pain Meloxicam [Mobic] 15 mg PO DAILY Ezetimibe [Zetia] 10 mg PO DAILY Doxepin [SINEquan] 25 mg PO HS Simvastatin [Zocor] 40 mg PO DAILY Mesalamine [Pentasa] 500 mg PO TID Pantoprazole Sodium [Protonix] 40 mg PO DAILY Discharge Medication List Diclofenac Sodium Gel [Voltaren Gel] 1 applic TOPICAL BID PRN 10/19/16 [History] Doxepin [SINEquan] 25 mg PO HS 10/19/16 [History] Ezetimibe [Zetia] 10 mg PO DAILY 10/19/16 [History] Lidocaine 5% Patch [Lidoderm] 1 patch TOPICAL DAILY 10/19/16 [History] Meloxicam [Mobic] 15 mg PO DAILY 10/19/16 [History] Mesalamine [Pentasa] 500 mg PO TID 10/19/16 [History] Pantoprazole Sodium [Protonix] 40 mg PO DAILY 10/19/16 [History] Simvastatin [Zocor] 40 mg PO DAILY 10/19/16 [History] traMADol HCL [Ultram] 50 mg PO Q6HR PRN 10/19/16 [History] Hydrocodone/Acetaminophen [[place] 5-325] 1 - 2 each PO Q6HR PRN #90 tab 10/27/16 [Rx] Sennosides-Docusate Sodium [Senokot-S] 1 tab PO BID PRN #60 tablet 10/27/16 [Rx] Follow up Appointment(s)/Referral(s): Moreno Schwarz, FAHAD [PHYSICIAN DISPATCHER ELECTRIC POWER] - 2 Weeks (Patient may follow-up with Moreno Schwarz PA-C or Dr. Keanu Snowden at [facility] in 2-3 weeks following discharge. ) VNA Visiting Nurse, [NON-STAFF] - 1 Week Patient Instructions/Handouts: Lumbar Spinal Fusion (DC), Lumbar Spinal Fusion (GEN) Activity/Diet/Wound Care/Special Instructions: 1. Patient may shower Tegaderm dressing intact. 2. Patient may remove Tegaderm dressing in 3 days and shower without a dressing at that time. 3. Patient should keep Steri-Strips intact and allow them to fall off naturally. 4. Patient should refrain from driving until at least after their first follow- up appointment in the office. 5. Patient should avoid excessive bending, twisting, and lifting; no lifting greater than 10 pounds 6. Do not soak in tub Discharge Disposition: HOME SELF-CARE
--- NOTE | 2016-10-30 07:55 | PN ---
Consultation note/Discharge note: She was admitted here on 10/25. She is being discharged here on 10/29. DISCHARGE DIAGNOSES: 1. Postoperative decompression L3-L4, L4-L5 for severe spondylolisthesis and spinal stenosis. 2. History of Crohns disease with doubtful but possible flare up. 3. Definite ileus which is resolved. 4. Gastroesophageal reflux disease. 5. Hyperlipidemia. 6. He had a history of moderately severe osteoarthritis. This 56 -year-old white female, was admitted and had surgery for the above mentioned diagnoses. During that period of time she was tolerating pain meds good. She had a fair amount of then right lower lobe quadrant pain with decreased bowel sounds throughout and also low grade fever. Blood cultures were completed as were urine cultures completed. They have both all come back negative at this period of time. She has had a history of Crohns disease so at that time she was started on Flagyl and Cipro. She is doing much better. She has at this point she is being to the point of being able to ambulate and we are in the process of discharging her home hopefully. Review of systems: Cardiopulmonary: No shortness of breath or chest pain. She has no orthopnea. No paroxysmal nocturnal dyspnea at this time. No cough. GI: No hematemesis, melena or hematochezia. She is having a bowel movement. She did have another enema last pm and she is on Colace. She has decrease in right lower quadrant discomfort to almost normal. : Normal urination. Neuromuscular: She has ( ) in the legs and pain in her back and her legs are very good now. She is tolerating pain medication quite well. Endocrine is negative. Integumentary: Negative. PHYSICAL EXAMINATION: Vital signs: Blood pressure 127/68. Heart rate is 90. Respiratory rate is 18. Temperature is 98.5. Eyes: Pupils are equal, round and reactive to light and accommodation. ENT: Tympanic membranes and pharynx to be negative. Neck is supple with midline trachea. No palpable masses. Good carotid upstroke. Chest essentially clear to auscultation. Heart is sinus rhythm. No murmurs. Normal S1, S2 and no S3. Abdomen soft, minimal amount of tenderness in the right lower quadrant. A fair amount of bowel sounds at this time. Rebound tenderness. Lower extremities negative swelling. Negative. Back incision is clean. ASSESSMENT: 1. Postoperative decompression L3-L4, L4-5 with severe spondylolisthesis. 2. History of Crohns disease with questionable flare up. Rule out the possibility of ileus. 3. Gastrointestinal reflux. 4. Hyperlipidemia. At this time she is going to be discharged home on regular medication. I am not going to put her on Flagyl or Cipro at this period of time. She appears to be doing quite well at this time. She will follow-up with me within two weeks. She is going to follow-up with Dr. Snowden accordingly. Please refer to my orders. MTDD
== END 2016-10-29 11:30 | disposition home health service (06) | DRG 460 ==
LOC: 2ORMAIN 06:07 → 3SUR 12:00
PROVIDERS: ADMIT Orthopaedic Surgery Orthopaedic Surgery of the Spine; ATTEND Orthopaedic Surgery Orthopaedic Surgery of the Spine
PROC: 0SG107J Fusion of 2 or more Lumbar Vertebral Joints with Autologous Tissue Substitute, Posterior Approach, Anterior Column, Open Approach (ICD-10-PCS; 2016-10-25)
PROC: 0ST20ZZ Resection of Lumbar Vertebral Disc, Open Approach (ICD-10-PCS; 2016-10-25)
PROC: 07DS3ZZ Extraction of Vertebral Bone Marrow, Percutaneous Approach (ICD-10-PCS; 2016-10-25)
PROC: 4A11X4G Monitoring of Peripheral Nervous Electrical Activity, Intraoperative, External Approach (ICD-10-PCS; 2016-10-25)
PROC: 0SG10AJ Fusion of 2 or more Lumbar Vertebral Joints with Interbody Fusion Device, Posterior Approach, Anterior Column, Open Approach (ICD-10-PCS; principal; 2016-10-25 07:30)
DX: M43.16 Spondylolisthesis, lumbar region (principal); K51.90 Ulcerative colitis, unspecified, without complications; K56.7 Ileus, unspecified; E78.5 Hyperlipidemia, unspecified; M48.06 Spinal stenosis, lumbar region; M51.16 Intervertebral disc disorders with radiculopathy, lumbar region; M51.17 Intervertebral disc disorders with radiculopathy, lumbosacral region; K21.9 Gastro-esophageal reflux disease without esophagitis; F12.90 Cannabis use, unspecified, uncomplicated; M19.91 Primary osteoarthritis, unspecified site; Z79.899 Other long term (current) drug therapy
CPT/HCPCS: 72020; 72100; 80048; 83605; 85025; 86850; 86891; 86900; 86901; 87040; 87086

== ENCOUNTER 2017-07-09 07:57 | Day surgery (SDC) | payer MEDICARE ==
[2017-07-04 11:30] VITALS: BMI 37.5
[~2017-07-09 07:57] MED LIST changes: -BACITRACIN 50,000 UNIT, POLYMYXIN B 500,000 UNIT in SODIUM CHLORIDE 0.9% IRRIGATIO 1,00... IRRIGATION ONE; -DEXAMETHASONE SOD PHOSPHATE 10 MG/ML 1 ML VIAL IV ONE; -FAMOTIDINE 20 MG/2 ML VIAL IV PRN; +MIDAZOLAM 2 MG/2 ML VIAL IV PRN; -SCOPOLAMINE 1.5MG/72HR PATCH TRANSDERM ONE; -ceFAZolin 2 GM in SODIUM CHLORIDE 0.9% 100 ML IVPB ONE
[2017-07-09 08:26] VITALS: RESP 16; TEMP 98.9
[2017-07-09] MEDS ORDERED: LIDOCAINE 1% 20 ML VIAL (10MG/ML) FOR IV START INTRADERMA ONE (08:27)
[2017-07-09] MEDS ORDERED: PROPOFOL 10 MG/ML 20 ML VIAL IV ONE (09:11)
[2017-07-09] MEDS ORDERED: LIDOCAINE 1% INJ 10MG/ML (20 ML MDV) ONE (09:11)
--- NOTE | 2017-07-09 09:59 | P.PCN ---
Date of Procedure: 07/09/17 Procedure(s) Performed: Procedure: 1. Esophagogastroduodenoscopy and biopsy. 2. Colonoscopy and biopsy. Preoperative diagnosis: Abdominal pain and change in bowel habits. Postoperative diagnosis: 1. Sliding hiatal hernia with no obvious esophagitis or complicated reflux disease. 2. Mild gastritis. 3. Ileitis. 4. Low-grade internal hemorrhoids. 5. Biopsies obtained from the duodenum, antrum, esophagus , terminal ileum and right colon. Preparation HalfLytely prep. Sedation: Was provided by anesthesia. Brief clinical history: The patient is a 56-year-old female with history of Crohn's disease maintained on Pentasa, is scheduled for this evaluation because of change in bowels and epigastric and upper abdominal pains. Her prior colonoscopy was more than 3 years ago and she had no prior upper endoscopy. She is currently on Protonix. Procedure: With the patient on her left lateral decubitus position and after informed consent and adequate sedation, I passed the Olympus-GIF 160 video upper endoscope through the cricopharyngeus down the esophagus. GE junction was around 36 cm from the incisors and there was a 1-2 cm sliding hiatal hernia but no obvious esophagitis or complicated reflux disease. The endoscope was then passed into the stomach which was insufflated with air and inspected in detail including the retroflex view in the cardia. There was mottling and erythema in the antrum but no ulcers or erosions. Pyloric channel, duodenal bulb, post bulbar area and descending duodenum appeared within normal limits. I obtained biopsies from the duodenum, antrum and esophagus then the endoscope was withdrawn and I proceeded with the colonoscopy. Perianal area did not show any fissures or fistulas. There were no masses felt on digital rectal examination. The Olympus CFQ 160L video colonoscope was then inserted in the rectum in the usual fashion and advanced to the cecum. I intubated the ileocecal valve and examined the terminal ileum. The preparation of the colon was less than ideal, but where visualized the mucosa appeared healthy. No polyps or tumors were seen. The terminal ileum was inspected for a good distance and it showed scattered erosions and small ulcerations with normal appearing mucosa in between consistent with ileitis as previously noted. There were no large serpiginous ulcers or strictures. I obtained multiple biopsies from the terminal ileum as well as biopsies from the right colon. I retroflexed the endoscope in the rectum before the endoscope was withdrawn. Grade 2 internal hemorrhoids were noted with no bleeding. The patient tolerated the procedure well. Plan: I summarized the findings to the patient. Will await pathology results and make additional recommendations. I will keep you updated on her progress.
[2017-07-09 10:08] VITALS: BP 160/88; PULSE 62
== END 2017-07-09 10:10 | disposition home or self-care (01) ==
LOC: ORWHC2ENDO 07:57
DX: K29.50 Unspecified chronic gastritis without bleeding (principal); K52.9 Noninfective gastroenteritis and colitis, unspecified; K21.9 Gastro-esophageal reflux disease without esophagitis; K44.9 Diaphragmatic hernia without obstruction or gangrene; K64.1 Second degree hemorrhoids; K50.90 Crohn's disease, unspecified, without complications; E78.5 Hyperlipidemia, unspecified; G89.29 Other chronic pain; M54.5 Low back pain; Z79.1 Long term (current) use of non-steroidal anti-inflammatories (NSAID); Z79.899 Other long term (current) drug therapy; Z88.5 Allergy status to narcotic agent
CPT/HCPCS: 88305; 45380; 43239; J2001; J2704

== ENCOUNTER → 2017-07-18 | Outpatient (CLI) | payer MEDICARE ==
[2017-07-18 11:20] VITALS: BP 134/78; PULSE 81; RESP 12; TEMP 97.8; BMI 36.8
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
--- NOTE | 2017-07-20 08:19 | MM ---
Reason for exam: screening (asymptomatic). Last mammogram was performed 1 year and 2 months ago. History: Patient is postmenopausal and is nulliparous. Family history of breast cancer in maternal aunt, breast cancer in cousin, and premenopausal breast cancer in mother at age 40. Took progesterone for 5 years. Took unspecified hormones for 3 years beginning at age 41. Physical Findings: A clinical breast exam by your physician is recommended on an annual basis and results should be correlated with mammographic findings. MG 3D Screening Mammo W/Cad Bilateral CC and MLO view(s) were taken. Prior study comparison: May 10, 2016, bilateral MG 3d screening mammo w/cad. December 30, 2014, bilateral MG screening mammo w CAD. The breast tissue is heterogeneously dense. This may lower the sensitivity of mammography. Benign calcifications bilaterally. No suspicious abnormality. ASSESSMENT: Benign, BI-RAD 2 RECOMMENDATION: Routine screening mammogram of both breasts in 1 year.
== END | disposition home or self-care (01) ==
LOC: WWCWWP 10:55
PROVIDERS: ATTEND Obstetrics & Gynecology
DX: Z12.31 Encounter for screening mammogram for malignant neoplasm of breast (principal)
CPT/HCPCS: 77063; 77067

== ENCOUNTER → 2017-12-19 | Outpatient (CLI) | payer MEDICARE ==
[2017-12-19 13:48] LABS: HCT 42.7 % (34.0-46.0); HGB 14.3 gm/dL (11.4-16.0); MCH 30.6 pg (25.0-35.0); MCHC 33.6 g/dL (31.0-37.0); Mean Platelet Volume 7.3; Platelet Count 297 k/uL (150-450); RBC 4.68 m/uL (3.80-5.40); WBC 7.7 k/uL (3.8-10.6)
[2017-12-19 13:49] LABS: ALT 27 U/L (9-52); AST 26 U/L (14-36); Albumin 4.5 g/dL (3.5-5.0); Alkaline Phosphatase 78 U/L (38-126); Anion Gap 10 mmol/L; Blood Urea Nitrogen 15 mg/dL (7-17); C Reactive Protein 8.5 mg/L (<10.0); Calcium 9.7 mg/dL (8.4-10.2); Carbon Dioxide 28 mmol/L (22-30); Chloride 105 mmol/L (98-107); Glucose 131 mg/dL (74-99); Potassium 4.8 mmol/L (3.5-5.1); Sodium 143 mmol/L (137-145); Total Bilirubin 0.3 mg/dL (0.2-1.3); Total Protein 7.7 g/dL (6.3-8.2)
[2017-12-19 13:50] LABS: MCV 91.2 fL (80.0-100.0)
[2017-12-19 14:13] LABS: Erythrocyte Sedimentation Rate 38 mm/hr (0-20)
[2017-12-19 18:41] LABS: Vitamin D 25 Hydroxy 21.4 ng/mL (30.0-100.0)
== END | disposition home or self-care (01) ==
LOC: LABWHC1 11:55
DX: K50.00 Crohn's disease of small intestine without complications (principal)
CPT/HCPCS: 36415; 80053; 82306; 82542; 82607; 82657; 85027; 85652; 86140

== ENCOUNTER → 2018-10-02 | Outpatient (CLI) | payer MEDICARE ==
[2018-10-02 08:12] VITALS: BP 141/85; PULSE 68; RESP 16; TEMP 98.7; BMI 35.9
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
--- NOTE | 2018-10-03 11:38 | MM ---
Reason for exam: screening (asymptomatic). Last mammogram was performed 1 year and 2 months ago. History: Patient is postmenopausal and is nulliparous. Family history of breast cancer in maternal aunt, breast cancer in cousin, and premenopausal breast cancer in mother at age 40. Took progesterone for 5 years. Took unspecified hormones for 3 years beginning at age 41. Physical Findings: A clinical breast exam by your physician is recommended on an annual basis and results should be correlated with mammographic findings. MG 3D Screening Mammo W/Cad Bilateral CC and MLO view(s) were taken. Prior study comparison: July 18, 2017, bilateral MG 3d screening mammo w/cad. May 10, 2016, bilateral MG 3d screening mammo w/cad. There are scattered fibroglandular densities. There are benign appearing round calcifications bilaterally. There is chronic nodularity in the right breast. There is no discrete abnormality. ASSESSMENT: Benign, BI-RAD 2 RECOMMENDATION: Routine screening mammogram of both breasts in 1 year.
== END | disposition home or self-care (01) ==
LOC: WWCWWP 08:01
PROVIDERS: ATTEND Obstetrics & Gynecology
DX: Z12.31 Encounter for screening mammogram for malignant neoplasm of breast (principal)
CPT/HCPCS: 77063; 77067

== ENCOUNTER → 2019-04-03 | Outpatient (CLI) | payer MEDICARE ==
[2019-04-03 15:49] LABS: Appearance,Urine Clear (Clear); Bilirubin,Urine Negative (Negative); Blood,Urine Negative (Negative); Color,Urine Yellow; Glucose,Urine (UA) Negative (Negative); Ketones,Urine Negative (Negative); Leukocyte Esterase,Urine Negative (Negative); Nitrite,Urine Negative (Negative); PH, Urine 6.5 (5.0-8.0); Protein,Urine Negative (Negative); Specific Gravity,Urine 1.018 (1.001-1.035); Urobilinogen,Urine <2.0 mg/dL (<2.0)
[2019-04-03 15:52] LABS: HCT 43.9 % (34.0-46.0); HGB 14.6 gm/dL (11.4-16.0); MCH 30.6 pg (25.0-35.0); MCHC 33.2 g/dL (31.0-37.0); MCV 92.1 fL (80.0-100.0); Mean Platelet Volume 8.3; Platelet Count 294 k/uL (150-450); RBC 4.77 m/uL (3.80-5.40); RDW 13.9 % (11.5-15.5); WBC 9.6 k/uL (3.8-10.6)
[2019-04-03 15:59] LABS: INR 0.9 (<1.2); Partial Thromboplastin Time 23.9 sec (22.0-30.0); Prothrombin Time 9.6 sec (9.0-12.0)
[2019-04-03 16:01] LABS: ALT 19 U/L (4-34); AST 31 U/L (14-36); African American GFR (CKD) >90 (>60 ml/min/1.73 sqM); Albumin 4.6 g/dL (3.5-5.0); Alkaline Phosphatase 95 U/L (38-126); Anion Gap 8 mmol/L; Blood Urea Nitrogen 18 mg/dL (7-17); Calcium 9.5 mg/dL (8.4-10.2); Carbon Dioxide 30 mmol/L (22-30); Chloride 103 mmol/L (98-107); Glucose 93 mg/dL (74-99); Non-African American GFR(CKD) >90 (>60 ml/min/1.73 sqM); Potassium 4.7 mmol/L (3.5-5.1); Sodium 141 mmol/L (137-145); Total Bilirubin 0.3 mg/dL (0.2-1.3); Total Protein 8.2 g/dL (6.3-8.2)
== END | disposition home or self-care (01) ==
LOC: LABPAT 15:03
PROVIDERS: ATTEND Orthopaedic Surgery
DX: Z01.818 Encounter for other preprocedural examination (principal); Z01.812 Encounter for preprocedural laboratory examination
CPT/HCPCS: 80053; 81003; 85027; 85610; 85730; 87070; 93005

== ENCOUNTER 2019-04-28 10:47 | Day surgery (SDC) | payer MEDICARE ==
[2019-04-24 15:10] VITALS: BMI 35.9
[~2019-04-28 10:47] MED LIST changes: -LACTATED RINGERS 1,000 ML IV SCH; -LIDOCAINE 1% 20 ML VIAL (10MG/ML) FOR IV START INTRADERMA PRN; +ROPIVACAINE 246.25 MG, EPINEPHrine 0.5 MG, KETOROLAC 30 MG, cloNIDine HCL/PF 80 MCG, WA... MISCELLANE ONE; +SCOPOLAMINE 1.5MG/72HR PATCH TRANSDERM ONE; +TRANEXAMIC ACID 1,000 MG in SODIUM CHLORIDE 0.9% 100 ML IVPB ONE
[2019-04-28] MEDS: LACTATED RINGERS 1,000 ML IV SCH ×2 (11:33→12:36)
[2019-04-28] MEDS: GABAPENTIN 300 MG CAP PO ONE ×2 (11:42→18:03)
[2019-04-28] MEDS: ACETAMINOPHEN TAB 500 MG TAB PO ONE ×2 (11:42→18:03)
[2019-04-28] MEDS: MELOXICAM 7.5 MG TAB PO ONE ×2 (11:42→18:03)
[2019-04-28] MEDS: DEXAMETHASONE SOD PHOSPHATE 10 MG/ML 1 ML VIAL IV ONE ×2 (11:44→18:04)
[2019-04-28] MEDS: ONDANSETRON 4 MG/2 ML VIAL IVP ONE ×2 (11:45→18:03)
[2019-04-28] MEDS: fentaNYL (PF) 50 MCG/ML 2 ML AMP IV PRN ×5 (11:57→16:51)
[2019-04-28] MEDS ORDERED: SODIUM CHLORIDE 0.9% 100 ML BAG ONE (12:38)
[2019-04-28] MEDS ORDERED: ceFAZolin 3,000 MG in SODIUM CHLORIDE 0.9% IRRIGATIO 3,000 ML IRRIGATION ONE (12:38)
[2019-04-28] MEDS ORDERED: PROPOFOL 10 MG/ML 20 ML VIAL IV ONE (12:38)
[2019-04-28] MEDS ORDERED: SUCCINYLCHOLINE CHLORIDE 100 MG/5 ML SYR IV ONE (12:38)
[2019-04-28] MEDS ORDERED: LIDOCAINE 1% INJ 10MG/ML (20 ML MDV) ONE (12:38)
[2019-04-28] MEDS ORDERED: MIDAZOLAM 2 MG/2 ML VIAL ONE (12:38)
[2019-04-28] MEDS ORDERED: fentaNYL (PF) 50 MCG/ML 2 ML AMP ONE (12:38)
[2019-04-28] MEDS ORDERED: NEOSTIGMINE 1 MG/ML 10 ML VIAL ONE (12:38)
[2019-04-28] MEDS ORDERED: TRANEXAMIC ACID 1,000 MG/10 ML VIAL ONE (12:38)
[2019-04-28] MEDS ORDERED: ROCURONIUM BROMIDE 10 MG/ML 5 ML VIAL IV ONE (12:38)
[2019-04-28] MEDS ORDERED: GLYCOPYRROLATE 0.2 MG/ML 2 ML VIAL ONE (12:38)
[2019-04-28] MEDS ORDERED: ePHEDrine SULFATE/0.9% NACL/PF 50 MG/5 ML SYRINGE IV ONE (12:38)
[2019-04-28] MEDS ORDERED: LACTATED RINGERS 1,000 ML IV ONE (13:58)
--- NOTE | 2019-04-28 14:15 | P.OP ---
Date of Procedure: 04/28/19 Procedure(s) Performed: PREOPERATIVE DIAGNOSIS: Right knee severe osteoarthritis with genu varum POSTOPERATIVE DIAGNOSIS: Right knee severe osteoarthritis with genu varum OPERATION: Right knee cemented total replacement arthroplasty. ANESTHESIA: Spinal ESTIMATED BLOOD LOSS: 50 ml. PRODUCTION UTILITY WORKER: Suzie Ferguson PA-C (assistance with: patient positioning, retraction, exposure, hemostasis, leg positioning, implantation, irrigation, closure, dressing) COMPLICATIONS: None apparent. COMPONENTS IMPLANTED: Journey II BCS total knee system from [employer] INDICATIONS: Dorita is a 58 year old female with a history of right knee osteoarthritis. The patient's knee is end-stage, and conservative management has failed. The operation of knee replacement has been discussed at length in the office, as well as potential risks and complications. These are inclusive of, but not limited to: bleeding, infection, scarring, discomfort, blood vessel and nerve damage, need for further surgery, failure to relieve symptoms, persistence, recurrence, or worsening of problems, loosening, dislocation, wear, blood clot, pulmonary embolism, , gait dysfunction, stiffness, and other risks as discussed in the office. The patient elects to proceed and the consent form has been signed. PROCEDURE: The patient was taken to the operating room and positioned on the operating room table in the supine position. Anesthesia was initiated. Care was taken to make sure that all pressure points were adequately padded. The operative lower extremity was prepped and draped in the usual aseptic fashion using ChloraPrep. Ioban drape was used for the case and the patient received intravenous antibiotics within one hour of the incision. A pneumotourniquet and leg ambriz were used for the case. The limb was exsanguinated with an Esmarch bandage and the tourniquet was inflated to 350 mmHg. Time-out was called confirming the patient's identity, side, procedure and administration of antibiotics and tranexamic acid. The incision was then created midline directly over the right knee, carried down through skin and into the subcutaneous tissues and down to fascia. Full thickness subcutaneous medial flap was developed. Medial parapatellar arthrotomy was performed and the interior of the knee was inspected. There was end-stage osteoarthritis of the knee with a mild to moderate genu valgum type deformity. The fat pad was excised and proximal medial release on the tibia was completed using meticulous dissection and a curved osteotome. The anterior cruciate ligament was taken down. Note was made of significant attrition of the anterior and significant degenerative appearance of the cruciate ligaments. The exposure was excellent. The knee was flexed 90 degrees and the patella was everted. The [employer] pre- made distal cutting block was attached and pinned into position. The planned cut was analyzed visually and with the alignment eva and found to be satisfactory without the need for any adjustment. The oscillating saw was then used to make the distal femoral cut and make the alignment holes for the 5 in 1 block. This cut was confirmed to be flat with the flat end of an osteotome. The 5 in 1 block was then used to create the anterior posterior condylar resections and the chamfer cuts. The retractors were placed around the tibia and the tibial surface was addressed. The [employer] pre-made guide was placed onto the exposed tibial surface and pinned into position to roberta the rotational alignment. The alignment of the guide was checked for depth of plannned resection, slope, and varus valgus. Guide was confirmed to be in good position and the tibial cut was then created with protection of the posterior neurovascular structures and the collateral ligaments. The tibial cut surface was removed and sized. Spacer block technique was then used to confirm that the flexion and extension gaps were equal. Soft tissue releases and adjustment of the tibial and/or femoral cuts were made, as necessary, until the gaps were equal. This included release of the posterior cruciate ligament, which was excessively tight in this patient. The trial components were inserted. The tibial tray was allowed to self center and the patella was noted to track very well. The position of the tibial component was marked and noted to be nearly exactly aligned with the pre-drilled holes from the [employer] guide. The tibia was then finished for a stemmed tibial component. Patellar resurfacing was performed using a reamer. The size of the required patellar component was estimated and the patellar surface was then reamed down to a residual thickness which would recreate the [place] thickness with the component. The exact placement of the patellar component was adjusted for position based on preoperative x-rays and intraoperative findings. Trial components were removed and the cut surfaces of the bone were pulse lavaged thoroughly and dried. Cement was mixed on the back table and applied to the final components. Cement was then applied to the tibial surface and pressurized into the surface using finger pressurization technique. The tibial component was then applied and excess cement was removed after it was impacted securely and noted to be flush with the cut surface. In similar fashion, the cement was applied to the cut femoral surface, pressurized in using finger pressurization and the component was impacted into place. Excess cement was removed. The polyethylene spacer was then implanted and locked into position. The patellar component was then applied in similar technique and a patellar clamp was used to hold the patella in place as the jose ent hardened. Once the cement had fully hardened, the knee was reinspected. Any other cement extrusion was removed and final kinematic testing showed range of motion from 0 to 130 degrees with excellent stability, both medially and laterally and appropriate alignment of the leg. Patellar tracking was excellent. The knee was then thoroughly pulse lavaged with normal saline. The tourniquet was deflated and hemostasis was obtained with electrocautery and IV tranexamic acid, 1 g given at the start of the operation and 1 g at the start of closure. Closure was with #2 Ethibond in the fascia/capsule and supplemented with #2 Quill, 2-0 Vicryl suture was used for the subcutaneous tissues and 3-0 Quill for the skin. Dermabond/Steri-Strips were then applied. A lightly compressive dressing was applied using Webril and an Guilherme wrap. The patient was then transferred to stretcher and taken to the recovery room in stable condition. Sponge and needle counts were correct.
[2019-04-28] MEDS ORDERED: ROPIVACAINE 0.2%-NS ON-Q PUMP 1,090 MG, EMPTY PAIN BALL 1 EACH MISCELLANE PRN (15:09)
--- NOTE | 2019-04-28 15:15 | XR ---
EXAMINATION TYPE: XR knee limited RT DATE OF EXAM: 04/28/2019 CLINICAL HISTORY: Right knee pain and arthritis status post total knee replacement. TECHNIQUE: Portable AP and crosstable lateral views of the right knee are obtained immediately posto peratively. COMPARISON: None FINDINGS: Metallic hardware from total right knee arthroplasty is seen and appears satisfactory in a lignment and position. There is evidence of recent surgery with diffuse soft tissue swelling and sub cutaneous emphysema noted. IMPRESSION: METALLIC HARDWARE FROM TOTAL RIGHT KNEE ARTHROPLASTY IS SATISFACTORY IN ALIGNMENT.
[2019-04-28 17:19] VITALS: BP 131/83; PULSE 95; RESP 17; TEMP 98.1
[2019-04-28] MEDS ORDERED: BALSALAZIDE DISODIUM 750 MG CAPSULE PO SCH (22:00)
[2019-04-29] MEDS ORDERED: CHOLECALCIFEROL 1,000 UNIT TAB PO SCH (09:00)
[2019-04-29] MEDS ORDERED: EZETIMIBE 10 MG TAB PO SCH (09:00)
[2019-04-29] MEDS ORDERED: PANTOPRAZOLE 40 MG TABLET PO SCH (09:00)
[2019-04-29] MEDS ORDERED: LACTOBACILLUS ACIDOPH & BULGAR 1 EACH PACKET PO SCH (09:00)
[2019-04-29] MEDS ORDERED: ATORVASTATIN 10 MG TAB PO SCH (09:00)
--- NOTE | 2019-04-30 13:26 | P.ANPRN ---
Procedure Note - Anesthesia - Nerve Block Performed Right Adductor Canal Infusion Time Out Performed: Yes Date of Procedure: 04/28/19 Procedure Start Time: 11:56 Procedure Stop Time: 12:05 Location of Patient: PreOp Indication: Acute Post-Operative Pain, Dx/Pain Location, Requested by Surgeon Sedation Type: Sedate with meaningful contact maintained Preparation: Sterile Prep, Sterile Dressing Position: Supine Catheter: Indwelling Needle Types: Pajunk Needle Gauge: 21 Ultrasound used to visualize needle placement: Yes Ultrasound used to observe medication spread: Yes Injectate: 0.5% Ropivacaine (see comment for volume) (20ml) Blood Aspirated: No Pain Paresthesia on Injection Noted: No Resistance on Injection: Normal Image Stored and Saved: Yes Events: Uneventful and Well Tolerated
--- NOTE | 2019-04-30 13:27 | P.ANPRN ---
Procedure Note - Anesthesia - Nerve Block Performed Right Other (see comment) Single Time Out Performed: Yes (IPACK NERVE BLOCK ) Date of Procedure: 04/28/19 Procedure Start Time: 12:05 Procedure Stop Time: 12:08 Location of Patient: PreOp Indication: Acute Post-Operative Pain, Dx/Pain Location, Requested by Surgeon Sedation Type: Sedate with meaningful contact maintained Preparation: Sterile Prep Position: Left Lateral Catheter: None Needle Types: Pajunk Needle Gauge: 21 Ultrasound used to visualize needle placement: Yes Ultrasound used to observe medication spread: Yes Injectate: 0.5% Ropivacaine (see comment for volume) (15ml) Blood Aspirated: No Pain Paresthesia on Injection Noted: No Resistance on Injection: Normal Image Stored and Saved: Yes Events: Uneventful and Well Tolerated
== END 2019-04-28 19:20 | disposition home or self-care (01) ==
LOC: OR 10:47 → 4SSUR 14:33 → OR 19:20
PROVIDERS: ATTEND Orthopaedic Surgery
DX: M17.11 Unilateral primary osteoarthritis, right knee (principal); M21.161 Varus deformity, not elsewhere classified, right knee; E78.00 Pure hypercholesterolemia, unspecified; K50.90 Crohn's disease, unspecified, without complications; Z87.11 Personal history of peptic ulcer disease; R51 Headache; R63.4 Abnormal weight loss; Z68.34 Body mass index [BMI] 34.0-34.9, adult; Z98.1 Arthrodesis status; Z83.3 Family history of diabetes mellitus; Z79.899 Other long term (current) drug therapy; Z88.5 Allergy status to narcotic agent; E78.5 Hyperlipidemia, unspecified; K21.9 Gastro-esophageal reflux disease without esophagitis; Z88.4 Allergy status to anesthetic agent
CPT/HCPCS: 27447; 88300; 73560; C1713; C1776; J2250; J1100; J2710; J0690 ×2; J2405; J2001; J3010; J0330; J2704; J2795; 64448; 76942

== ENCOUNTER → 2020-03-02 | Outpatient (CLI) | payer MEDICARE ==
[2020-03-02 15:41] VITALS: BP 143/85; PULSE 69; RESP 18; TEMP 98.3
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
--- NOTE | 2020-03-03 11:50 | MM ---
Reason for exam: screening (asymptomatic). Last mammogram was performed 1 year and 5 months ago. History: Patient is postmenopausal and is nulliparous. Family history of breast cancer in maternal aunt, breast cancer in cousin, and premenopausal breast cancer in mother at age 40. Took progesterone for 5 years. Took unspecified hormones for 3 years beginning at age 41. Physical Findings: A clinical breast exam by your physician is recommended on an annual basis and results should be correlated with mammographic findings. MG 3D Screening Mammo W/Cad Bilateral CC and MLO view(s) were taken. Prior study comparison: October 02, 2018, bilateral MG 3d screening mammo w/cad. July 18, 2017, bilateral MG 3d screening mammo w/cad. The breast tissue is heterogeneously dense. This may lower the sensitivity of mammography. There is no discrete abnormality. No significant changes when compared with prior studies. ASSESSMENT: Negative, BI-RAD 1 RECOMMENDATION: Routine screening mammogram of both breasts in 1 year.
== END | disposition home or self-care (01) ==
LOC: WWCWWP 15:10
PROVIDERS: ATTEND Obstetrics & Gynecology
DX: Z12.31 Encounter for screening mammogram for malignant neoplasm of breast (principal)
CPT/HCPCS: 77063; 77067

== ENCOUNTER 2020-04-19 07:32 | Day surgery (SDC) | payer MEDICARE ==
[2020-04-15 09:10] VITALS: BMI 37.8
[2020-04-19 07:55] VITALS: TEMP 97
[2020-04-19] MEDS ORDERED: LACTATED RINGERS 1,000 ML IV SCH (07:55)
[2020-04-19] MEDS ORDERED: LIDOCAINE 1% (10MG/ML) FOR IV START INTRADERMA PRN (07:55)
[2020-04-19] MEDS ORDERED: PROPOFOL 10 MG/ML 20 ML VIAL IV ONE (09:01)
[2020-04-19 09:37] VITALS: RESP 16
--- NOTE | 2020-04-19 09:40 | P.PCN ---
Date of Procedure: 04/19/20 Description of Procedure: BRIEF HISTORY: Patient is a 59-year-old female with a history of Crohn's ileitis diagnosed in 2004 presenting for outpatient colonoscopy for evaluation of Crohn's disease. Patient maintained on Pentasa therapy. She reports one to 2 bowel movements daily. Overall doing well but does report sensitivity to certain foods. PROCEDURE PERFORMED: Colonoscopy with biopsy. PREOPERATIVE DIAGNOSIS: Crohn's disease, last colonoscopy. ESTIMATED BLOOD LOSS: Minimal. IV sedation per Anesthesia. PROCEDURE: After informed consent was obtained, the patient, was brought into the endoscopy unit. IV sedation was administered by Anesthesia under continuous monitoring. Digital rectal examination was normal, except for external hemorrhoids. Initially the Olympus CF-190 flexible video colonoscope was then inserted in the rectum, gradually advanced into the cecum without any difficulty. Careful examination was performed as the scope was gradually being withdrawn. Ileocecal valve and the appendiceal orifice were visualized and appeared normal. Prep was excellent. Mucosa of the cecum, ascending colon, transverse colon, descending colon, sigmoid colon, and rectum appeared normal, except for a few superficial diminutive ulcers with random biopsies taken of the right colon, transverse colon, left colon and rectum. The terminal ileum was intubated without any stricturing or severe erythema noted however there were 5-6 superficial ulcers with random biopsies taken. Retroflexion was performed in the rectum and no lesions were seen, with internal hemorrhoids noted. The patient tolerated the procedure well. IMPRESSION: Mild Ileitis. Biopsies of the right colon, transverse colon, left colon and rectum as well as a terminal ileum. Internal and external hemorrhoids. RECOMMENDATIONS: Findings of this examination were discussed with the patient. Okay to resume diet. Okay to resume medications. Await pathology from biopsies. Follow up in the GI clinic as previously scheduled. Recommend repeat colonoscopy in 2 years.
[2020-04-19 09:51] VITALS: BP 146/82; PULSE 75
== END 2020-04-19 10:31 | disposition home or self-care (01) ==
LOC: ORWHC2ENDO 07:32
PROVIDERS: ATTEND Internal Medicine
DX: K50.00 Crohn's disease of small intestine without complications (principal); K63.3 Ulcer of intestine; K64.8 Other hemorrhoids; K64.4 Residual hemorrhoidal skin tags; Z88.5 Allergy status to narcotic agent; Z88.8 Allergy status to other drugs, medicaments and biological substances; E78.5 Hyperlipidemia, unspecified; M19.90 Unspecified osteoarthritis, unspecified site; K21.9 Gastro-esophageal reflux disease without esophagitis; Z79.899 Other long term (current) drug therapy; Z98.890 Other specified postprocedural states; Z96.651 Presence of right artificial knee joint
CPT/HCPCS: 88305; 45380; J2704

== ENCOUNTER → 2020-11-04 | Outpatient (CLI) | payer MEDICARE ==
[2020-11-04 12:03] LABS: Appearance,Urine Clear (Clear); Bilirubin,Urine Negative (Negative); Blood,Urine Negative (Negative); Color,Urine Yellow; Glucose,Urine (UA) Negative (Negative); Ketones,Urine Negative (Negative); Leukocyte Esterase,Urine Negative (Negative); Nitrite,Urine Negative (Negative); Protein,Urine Negative (Negative); Specific Gravity,Urine 1.029 (1.001-1.035); Urobilinogen,Urine <2.0 mg/dL (<2.0)
[2020-11-04 12:06] LABS: ALT 19 U/L (4-34); AST 28 U/L (14-36); African American GFR (CKD) >90 (>60 ml/min/1.73 sqM); Albumin 4.6 g/dL (3.5-5.0); Alkaline Phosphatase 95 U/L (38-126); Anion Gap 11 mmol/L; Blood Urea Nitrogen 19 mg/dL (7-17); Calcium 9.6 mg/dL (8.4-10.2); Carbon Dioxide 26 mmol/L (22-30); Chloride 103 mmol/L (98-107); Glucose 105 mg/dL (74-99); Non-African American GFR(CKD) >90 (>60 ml/min/1.73 sqM); Potassium 4.8 mmol/L (3.5-5.1); Sodium 140 mmol/L (137-145); Total Bilirubin 0.2 mg/dL (0.2-1.3); Total Protein 7.7 g/dL (6.3-8.2)
[2020-11-04 12:07] LABS: HCT 46.2 % (34.0-46.0); HGB 15.7 gm/dL (11.4-16.0); MCH 32.3 pg (25.0-35.0); MCV 94.9 fL (80.0-100.0); Mean Platelet Volume 8.5; Platelet Count 279 k/uL (150-450); RBC 4.87 m/uL (3.80-5.40); RDW 14.6 % (11.5-15.5)
[2020-11-04 12:33] LABS: INR 0.9 (<1.2); Partial Thromboplastin Time 23.6 sec (22.0-30.0)
== END | disposition home or self-care (01) ==
LOC: LABPAT 11:04
PROVIDERS: ATTEND Orthopaedic Surgery
DX: Z01.812 Encounter for preprocedural laboratory examination (principal); Z01.810 Encounter for preprocedural cardiovascular examination
CPT/HCPCS: 80053; 81003; 85027; 85610; 85730; 87070; 93005

== ENCOUNTER → 2020-12-09 | Outpatient (CLI) | payer OTHER, MEDICARE ==
[2020-12-09 10:21] LABS: HCT 46.6 % (34.0-46.0); HGB 15.5 gm/dL (11.4-16.0); MCH 31.3 pg (25.0-35.0); MCHC 33.3 g/dL (31.0-37.0); Mean Platelet Volume 7.7; Platelet Count 328 k/uL (150-450); RBC 4.96 m/uL (3.80-5.40); RDW 14.6 % (11.5-15.5); WBC 9.5 k/uL (3.8-10.6)
[2020-12-09 10:30] LABS: INR 0.9 (<1.2); Partial Thromboplastin Time 22.9 sec (22.0-30.0)
[2020-12-09 10:56] LABS: ALT 30 U/L (4-34); AST 32 U/L (14-36); African American GFR (CKD) >90 (>60 ml/min/1.73 sqM); Albumin 4.4 g/dL (3.5-5.0); Alkaline Phosphatase 88 U/L (38-126); Anion Gap 6 mmol/L; Blood Urea Nitrogen 20 mg/dL (7-17); Calcium 9.7 mg/dL (8.4-10.2); Carbon Dioxide 30 mmol/L (22-30); Chloride 104 mmol/L (98-107); Glucose 97 mg/dL (74-99); Non-African American GFR(CKD) >90 (>60 ml/min/1.73 sqM); Potassium 4.8 mmol/L (3.5-5.1); Sodium 140 mmol/L (137-145); Total Bilirubin 0.3 mg/dL (0.2-1.3); Total Protein 7.8 g/dL (6.3-8.2)
[2020-12-09 11:32] LABS: Appearance,Urine Clear (Clear); Bilirubin,Urine Negative (Negative); Blood,Urine Negative (Negative); Color,Urine Yellow; Glucose,Urine (UA) Negative (Negative); Ketones,Urine Negative (Negative); Leukocyte Esterase,Urine Negative (Negative); Nitrite,Urine Negative (Negative); Protein,Urine Negative (Negative); Specific Gravity,Urine 1.018 (1.001-1.035); Urobilinogen,Urine <2.0 mg/dL (<2.0)
== END | disposition home or self-care (01) ==
LOC: LABPAT 09:41
PROVIDERS: ATTEND Orthopaedic Surgery
DX: Z01.812 Encounter for preprocedural laboratory examination (principal); Z01.810 Encounter for preprocedural cardiovascular examination; M17.12 Unilateral primary osteoarthritis, left knee
CPT/HCPCS: 36415; 80053; 81003; 85027; 85610; 85730

== ENCOUNTER 2020-12-13 09:50 | Emergency (ER) | payer MEDICARE, OTHER ==
[2020-12-13 10:13] VITALS: PULSE 72; RESP 18; TEMP 98.1
[2020-12-13] MEDS ORDERED: HYDROmorphone 0.5 MG/0.5 ML SYRINGE IM STA (11:34)
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
[2020-12-13 12:22] VITALS: BP 132/74
== END 2020-12-13 12:23 | disposition home or self-care (01) ==
LOC: EC 09:50
DX: M54.5 Low back pain (principal); M79.605 Pain in left leg; R20.2 Paresthesia of skin; K21.9 Gastro-esophageal reflux disease without esophagitis; M19.90 Unspecified osteoarthritis, unspecified site; E78.5 Hyperlipidemia, unspecified; Z88.5 Allergy status to narcotic agent; Z88.8 Allergy status to other drugs, medicaments and biological substances; Z79.899 Other long term (current) drug therapy; Z87.39 Personal history of other diseases of the musculoskeletal system and connective tissue
CPT/HCPCS: 99283; 96372; J1170

== ENCOUNTER → 2021-01-26 | Outpatient (CLI) | payer MEDICARE ==
[2021-01-26 12:34] LABS: HCT 46.8 % (34.0-46.0); HGB 15.5 gm/dL (11.4-16.0); MCHC 33.1 g/dL (31.0-37.0); MCV 93.7 fL (80.0-100.0); Platelet Count 286 k/uL (150-450); RDW 14.2 % (11.5-15.5); WBC 9.7 k/uL (3.8-10.6)
[2021-01-26 12:51] LABS: Appearance,Urine Clear (Clear); Bilirubin,Urine Negative (Negative); Blood,Urine Negative (Negative); Color,Urine Yellow; Glucose,Urine (UA) Negative (Negative); Ketones,Urine Negative (Negative); Leukocyte Esterase,Urine Negative (Negative); Nitrite,Urine Negative (Negative); Protein,Urine Negative (Negative); Specific Gravity,Urine 1.023 (1.001-1.035); Urobilinogen,Urine <2.0 mg/dL (<2.0)
[2021-01-26 12:55] LABS: ALT 20 U/L (4-34); AST 30 U/L (14-36); African American GFR (CKD) >90 (>60 ml/min/1.73 sqM); Albumin 4.6 g/dL (3.5-5.0); Alkaline Phosphatase 92 U/L (38-126); Anion Gap 10 mmol/L; Blood Urea Nitrogen 19 mg/dL (7-17); Calcium 9.8 mg/dL (8.4-10.2); Carbon Dioxide 28 mmol/L (22-30); Chloride 102 mmol/L (98-107); Glucose 98 mg/dL (74-99); Non-African American GFR(CKD) 86 (>60 ml/min/1.73 sqM); Potassium 4.4 mmol/L (3.5-5.1); Sodium 140 mmol/L (137-145); Total Bilirubin 0.3 mg/dL (0.2-1.3); Total Protein 8.1 g/dL (6.3-8.2)
[2021-01-26 16:17] LABS: INR 0.9 (<1.2)
== END | disposition home or self-care (01) ==
LOC: LABPAT 10:29
PROVIDERS: ATTEND Orthopaedic Surgery
DX: Z01.812 Encounter for preprocedural laboratory examination (principal)
CPT/HCPCS: 36415; 80053; 81003; 85027; 85610; 85730; 87070; 93005

== ENCOUNTER 2021-02-21 11:11 | Day surgery (SDC) | payer OTHER, MEDICARE ==
[2021-02-16 13:28] VITALS: BMI 37.8
[~2021-02-21 11:11] MED LIST changes: +ACETAMINOPHEN TAB 500 MG TAB PO PRN; +DEXAMETHASONE SOD PHOSPHATE 4 MG/ML 1 ML VIAL IV ONE; +LACTATED RINGERS 1,000 ML IV SCH; +MELOXICAM 7.5 MG TAB PO PRN; -MIDAZOLAM 2 MG/2 ML VIAL IV PRN; +ONDANSETRON 4 MG/2 ML VIAL IVP PRN; -ROPIVACAINE 246.25 MG, EPINEPHrine 0.5 MG, KETOROLAC 30 MG, cloNIDine HCL/PF 80 MCG, WA... MISCELLANE ONE; -SCOPOLAMINE 1.5MG/72HR PATCH TRANSDERM ONE; -TRANEXAMIC ACID 1,000 MG in SODIUM CHLORIDE 0.9% 100 ML IVPB ONE; +TRANEXAMIC ACID 1,000 MG in SODIUM CHLORIDE 0.9% 100 ML IVPB PRN
[2021-02-21] MEDS ORDERED: MIDAZOLAM 2 MG/2 ML VIAL IV ONE (12:10)
[2021-02-21] MEDS ORDERED: fentaNYL (PF) 50 MCG/ML 5 ML AMP IV ONE (12:10)
[2021-02-21] MEDS ORDERED: ROCURONIUM 10 MG/ML (5 ML VIAL) IV ONE (12:31)
[2021-02-21] MEDS ORDERED: HYDROmorphone (PF) 1 MG/ML ONE (12:31)
[2021-02-21] MEDS ORDERED: LABETALOL 5 MG/ML VIAL MDV ONE (12:31)
[2021-02-21] MEDS ORDERED: MIDAZOLAM 2 MG/2 ML VIAL ONE (12:31)
[2021-02-21] MEDS ORDERED: PROPOFOL 10 MG/ML 20 ML VIAL IV ONE (12:31)
[2021-02-21] MEDS ORDERED: SODIUM CHLORIDE 0.9% 100 ML BAG ONE (12:31)
[2021-02-21] MEDS ORDERED: SUCCINYLCHOLINE CHLORIDE 100 MG/5 ML SYR IV ONE (12:31)
[2021-02-21] MEDS ORDERED: KETAMINE 10 MG/ML 20 ML VIAL ONE (12:31)
[2021-02-21] MEDS ORDERED: LIDOCAINE 1% INJ 10MG/ML (20 ML MDV) ONE (12:31)
[2021-02-21] MEDS ORDERED: ALBUTEROL HFA INHALER INHALATION ONE (12:31)
[2021-02-21] MEDS ORDERED: TRANEXAMIC ACID 1,000 MG/10 ML VIAL ONE (12:31)
[2021-02-21] MEDS ORDERED: ROPIVACAINE 5 MG/ML 30 ML VIAL ONE (12:31)
[2021-02-21] MEDS ORDERED: .fentaNYL (PF) 50 MCG/ML 2 ML AMP ONE ×2 (12:31)
[2021-02-21] MEDS ORDERED: ceFAZolin 3,000 MG in SODIUM CHLORIDE 0.9% IRRIGATIO 3,000 ML IRRIGATION ONE (12:36)
[2021-02-21 12:49] VITALS: RESP 16
[2021-02-21] MEDS ORDERED: ROPIVACAINE 0.2%-NS ON-Q PUMP 1,090 MG, EMPTY PAIN BALL 1 EACH MISCELLANE PRN (13:14)
--- NOTE | 2021-02-21 13:16 | P.ANPRN ---
Procedure Note - Anesthesia - Nerve Block Performed Left Adductor Canal Time Out Performed: Yes (:) Date of Procedure: 02/21/21 Procedure Start Time: Procedure Stop Time: Location of Patient: PreOp Indication: Acute Post-Operative Pain, Requested by Surgeon (Dr Brasher) Sedation Type: Sedate with meaningful contact maintained Preparation: Sterile Prep, Sterile Dressing Position: Supine Catheter: Indwelling Needle Types: Pajunk Needle Gauge: 21 Ultrasound used to visualize needle placement: Yes Ultrasound used to observe medication spread: Yes Injectate: 0.5% Ropivacaine (see comment for volume) (15cc) Blood Aspirated: No Pain Paresthesia on Injection Noted: No Resistance on Injection: Normal Image Stored and Saved: Yes Events: Uneventful and Well Tolerated
--- NOTE | 2021-02-21 13:18 | P.ANPRN ---
Procedure Note - Anesthesia - Nerve Block Performed Left iPack Time Out Performed: Yes Date of Procedure: 02/21/21 Procedure Start Time: : Procedure Stop Time: :31 Location of Patient: PreOp Indication: Acute Post-Operative Pain, Requested by Surgeon (Dr Brasher) Sedation Type: Sedate with meaningful contact maintained Preparation: Sterile Prep Position: Supine Catheter: None Needle Types: Pajunk Needle Gauge: 21 Ultrasound used to visualize needle placement: Yes Ultrasound used to observe medication spread: Yes Injectate: 0.5% Ropivacaine (see comment for volume) (15cc) Blood Aspirated: No Pain Paresthesia on Injection Noted: No Resistance on Injection: Normal Image Stored and Saved: Yes Events: Uneventful and Well Tolerated
[2021-02-21] MEDS ORDERED: LACTATED RINGERS 1,000 ML IV ONE (13:35)
--- NOTE | 2021-02-21 14:10 | P.OP ---
Date of Procedure: 02/21/21 Procedure(s) Performed: PREOPERATIVE DIAGNOSIS: Left knee severe osteoarthritis with genu varum POSTOPERATIVE DIAGNOSIS: Left knee severe osteoarthritis with genu varum OPERATION: Left knee cemented total replacement arthroplasty. ANESTHESIA: General and regional ESTIMATED BLOOD LOSS: 100 ml. CLINICAL APPEALS AUDITOR: Suzie Ferguson PA-C (assistance with: patient positioning, retraction, exposure, hemostasis, leg positioning, implantation, irrigation, closure, dressing) COMPLICATIONS: None apparent. COMPONENTS IMPLANTED: Journey II BCS total knee system from [employer] [facility] [employer] INDICATIONS: Dorita is a 60 year old active female with a history of left knee osteoarthritis. The patient's knee is end-stage, and conservative management has failed. The operation of knee replacement has been discussed at length in the office, as well as potential risks and complications. These are inclusive of, but not limited to: bleeding, infection, scarring, discomfort, blood vessel and nerve damage, need for further surgery, failure to relieve symptoms, persistence, recurrence, or worsening of problems, loosening, dislocation, wear, blood clot, pulmonary embolism, , gait dysfunction, stiffness, and other risks as discussed in the office. The patient elects to proceed and the consent form has been signed. PROCEDURE: The patient was taken to the operating room and positioned on the operating room table in the supine position. Anesthesia was initiated. Care was taken to make sure that all pressure points were adequately padded. The operative lower extremity was prepped and draped in the usual aseptic fashion using ChloraPrep. Ioban drape was used for the case and the patient received intravenous antibiotics within one hour of the incision. A pneumotourniquet and leg ambriz were used for the case. The limb was exsanguinated with an Esmarch bandage and the tourniquet was inflated to 325 mmHg. Time-out was called confirming the patient's identity, side, procedure and administration of antibiotics and tranexamic acid. The incision was then created midline directly over the left knee, carried down through skin and into the subcutaneous tissues and down to fascia. Full thickness subcutaneous medial flap was developed. Medial parapatellar arthrotomy was performed and the interior of the knee was inspected. There was end-stage osteoarthritis of the knee with a mild to moderate genu valgum type deformity. The fat pad was excised and proximal medial release on the tibia was completed using meticulous dissection and a curved osteotome. The anterior cruciate ligament was taken down. Note was made of significant attrition of the anterior and significant degenerative appearance of the cruciate ligaments. The exposure was excellent. The knee was flexed 90 degrees and the patella was everted. The [employer] pre- made distal cutting block was attached and pinned into position. The planned cut was analyzed visually and with the alignment eva and found to be satisfactory without the need for any adjustment. The oscillating saw was then used to make the distal femoral cut and make the alignment holes for the 5 in 1 block. This cut was confirmed to be flat with the flat end of an osteotome. The 5 in 1 block was then used to create the anterior posterior condylar resections and the chamfer cuts. The retractors were placed around the tibia and the tibial surface was addressed. The [employer] pre-made guide was placed onto the exposed tibial surface and pinned into position to roberta the rotational alignment. The alignment of the guide was checked for depth of plannned resection, slope, and varus valgus. Guide was confirmed to be in good position and the tibial cut was then created with protection of the posterior neurovascular structures and the collateral ligaments. The tibial cut surface was removed and sized. Spacer block technique was then used to confirm that the flexion and extension gaps were equal. Soft tissue releases and adjustment of the tibial and/or femoral cuts were made, as necessary, until the gaps were equal. This included release of the posterior cruciate ligament, which was excessively tight in this patient. The trial components were inserted. The tibial tray was allowed to self center and the patella was noted to track very well. The position of the tibial component was marked and noted to be nearly exactly aligned with the pre-drilled holes from the [employer] guide. The tibia was then finished for a stemmed tibial component. Patellar resurfacing was performed using a reamer. The size of the required patellar component was estimated and the patellar surface was then reamed down to a residual thickness which would recreate the [place] thickness with the component. The exact placement of the patellar component was adjusted for position based on preoperative x-rays and intraoperative findings. Trial components were removed and the cut surfaces of the bone were pulse lavaged thoroughly and dried. Cement was mixed on the back table and applied to the final components. Cement was then applied to the tibial surface and pressurized into the surface using finger pressurization technique. The tibial component was then applied and excess cement was removed after it was impacted securely and noted to be flush with the cut surface. In similar fashion, the cement was applied to the cut femoral surface, pressurized in using finger pressurization and the component was impacted into place. Excess cement was removed. The polyethylene spacer was then implanted and locked into position. The patellar component was then applied in similar technique and a patellar clamp was used to hold the patella in place as the cement hardened. Once the cement had fully hardened, the knee was reinspected. Any other cement extrusion was removed and final kinematic testing showed range of motion from 0 to 130 degrees with excellent stability, both medially and laterally and appropriate alignment of the leg. Patellar tracking was excellent. The knee was then thoroughly pulse lavaged with normal saline. The tourniquet was deflated and hemostasis was obtained with electrocautery and IV tranexamic acid, 1 g given at the start of the operation and 1 g at the start of closure. Closure was with #2 Ethibond in the fascia/capsule and supplemented with #2 Quill, 2-0 Vicryl suture was used for the subcutaneous tissues and 3-0 Quill for the skin. Dermabond/Steri-Strips were then applied. A lightly compressive dressing was applied using Webril and an Guilherme wrap. The patient was then transferred to stretcher and taken to the recovery room in stable condition. Sponge and needle counts were correct.
[2021-02-21 14:48] VITALS: TEMP 97.2
[2021-02-21] MEDS ORDERED: ROPIVACAINE 0.2%-NS ON-Q PUMP 2 MG/ML EACH MISCELLANE ONE (14:49)
--- NOTE | 2021-02-21 14:56 | XR ---
EXAMINATION TYPE: XR knee limited LT DATE OF EXAM: 02/21/2021 CLINICAL HISTORY: Postoperative evaluation Two views of the left knee are submitted. Identified are changes of total knee arthroplasty with fem oral and tibial components appearing well seated. Postsurgical soft tissue changes are noted. Align ment is anatomic.
[2021-02-21] MEDS: HYDROmorphone 0.5 MG/0.5 ML SYRINGE IVP PRN ×2 (15:00→15:30)
[2021-02-21] MEDS ORDERED: traMADol 50 MG TAB PO ONE (17:07)
[2021-02-21] MEDS ORDERED: traMADol 50 MG TAB ONE (17:07)
[2021-02-21 18:28] VITALS: BP 153/81; PULSE 73
[2021-02-21] MEDS ORDERED: ceFAZolin 2 GM in SODIUM CHLORIDE 0.9% 100 ML IVPB ONE (20:00)
== END 2021-02-21 18:54 | disposition home or self-care (01) ==
LOC: OR 11:11
PROVIDERS: ATTEND Orthopaedic Surgery
DX: M17.12 Unilateral primary osteoarthritis, left knee (principal)
CPT/HCPCS: 27447; 97110; 97161; 64999; 64448; 76942; 88300; 73560; C1713; C1776; J2250; J1100; J0690 ×2; J2405; J2001; J3010 ×2; J1170 ×2; J2795 ×2; J0330; J2704

== ENCOUNTER → 2021-06-28 | Outpatient (CLI) | payer MEDICARE ==
[2021-06-28 11:27] VITALS: BP 120/61; PULSE 77; RESP 12; TEMP 98.4
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
--- NOTE | 2021-06-30 10:55 | MM ---
Reason for exam: screening (asymptomatic). Last mammogram was performed 1 year and 4 months ago. History: Patient is postmenopausal and is nulliparous. Family history of breast cancer in maternal aunt, breast cancer in cousin, and premenopausal breast cancer in mother at age 40. Took progesterone for 5 years. Took unspecified hormones for 3 years beginning at age 41. Physical Findings: A clinical breast exam by your physician is recommended on an annual basis and results should be correlated with mammographic findings. MG 3D Screening Mammo W/Cad Bilateral CC and MLO view(s) were taken. Prior study comparison: March 02, 2020, bilateral MG 3d screening mammo w/cad. October 02, 2018, bilateral MG 3d screening mammo w/cad. Asymmetry greater in the right breast. Subtle stable distortion in the left breast. No significant changes when compared with prior studies. ASSESSMENT: Benign, BI-RAD 2 RECOMMENDATION: Routine screening mammogram of both breasts in 1 year.
== END | disposition home or self-care (01) ==
LOC: WWCWWP 11:07
PROVIDERS: ATTEND Obstetrics & Gynecology
DX: Z12.31 Encounter for screening mammogram for malignant neoplasm of breast (principal)
CPT/HCPCS: 77063; 77067

== ENCOUNTER → 2021-07-06 | Outpatient (CLI) | payer MEDICARE ==
--- NOTE | 2021-07-06 15:50 | BD ---
EXAMINATION TYPE: Axial Bone Density DATE OF EXAM: 07/06/2021 COMPARISON: NONE CLINICAL HISTORY: 60 years year old Female. ICD-10 CODE: Z78.0 ASYMPTOMATIC MENOPAUSAL STATE Height: 62.7 IN Weight: 211 LBS FRAX RISK QUESTIONS: Family History (Parent hip fracture): YES MOTHER History of Fracture in Adulthood: LT WRIST AGE 54 RISK FACTORS HISTORY OF: Active: YES Diet low in dairy products/other sources of calcium: YES Postmenopausal woman: AGE 50 Take estrogen and/or progesterone medications: HORMONES FOR 1 YEAR MEDICATIONS: Additional Medications: VIT D, ARTHRITIS MEDS, CHROHNS MEDS EXAM MEASUREMENTS: Bone mineral densitometry was performed using the ZUGGI System. TAILBONE/L SPINE SURGERY 2017 Bone mineral density about the R hip (g/cm2): 0.963 Bone mineral density about the L hip (g/cm2): 0.832 T Score values are as follows: -----R Neck: -0.5 -----L Neck: -1.5 -----R Total: 0.1 -----L Total: -0.7 Bone mineral density BASELINE Bone mineral density about the R Wrist (g/cm2): 0.730 T Score values are as follows: -----Dist. R+U: 1.1 -----Prox. R+U: 1.0 -----Radius total: 0.9 Bone mineral density BASELINE FRAX%s: The graph provided illustrates a 24.2 chance for a major osteoporotic fx and a 1.1 chance for the hips probability for fx in 10 years time. IMPRESSION: No evidence for osteoporosis or osteopenia NOTE: T-SCORE=SD OF THE YOUNG ADULT MEAN.
== END | disposition home or self-care (01) ==
LOC: RADBDWWP 14:57
PROVIDERS: ATTEND Obstetrics & Gynecology
DX: Z78.0 Asymptomatic menopausal state (principal)
CPT/HCPCS: 77080

== ENCOUNTER → 2021-07-07 | Outpatient (CLI) | payer MEDICARE ==
--- NOTE | 2021-07-07 15:43 | XR ---
Several spine HISTORY: [id number] CERVICALGIA,OLEC BURSITIS,RT SHL 4 views of the cervical spine There is multilevel spondylosis. Loss of disc height is present C4-5, C5-6. Minimal anterolisthesis g rade 1 C3-4, C2-3. There is some facet arthropathy changes. Prevertebral soft tissues are normal. The re is foraminal encroachment on the right at C4-5 and C5-6 and on the left at C5-6. Cervical vertebra l bodies show preserved height, bone mineralization. IMPRESSION: Degenerative disc disease and facet arthropathy, neural foraminal encroachment.
--- NOTE | 2021-07-07 15:44 | XR ---
Right elbow HISTORY: [id number] CERVICALGIA,OLEC BURSITIS,RT SHL 3 views of the right elbow There is no evident elbow joint effusion. There is marginal spurring present. Joint space loss is pre sent medial aspect. Alignment and bone mineralization is maintained. No fracture or dislocation. IMPRESSION: Osteoarthritis.
--- NOTE | 2021-07-07 15:45 | XR ---
Right shoulder HISTORY: [id number] CERVICALGIA,OLEC BURSITIS,RT SHL 3 views the right shoulder Bone mineralization, joint spaces and alignment are maintained. No fracture or dislocation. Right bill g apex as visualized is normal. IMPRESSION: No abnormality evident to account for patient's symptoms.
== END | disposition home or self-care (01) ==
LOC: RADXRYALE 14:18
PROVIDERS: ATTEND Internal Medicine
DX: M19.021 Primary osteoarthritis, right elbow (principal); M70.21 Olecranon bursitis, right elbow; M47.892 Other spondylosis, cervical region; M25.511 Pain in right shoulder
CPT/HCPCS: 72050

== ENCOUNTER → 2022-08-29 | Outpatient (CLI) | payer MEDICARE ==
[2022-08-29 14:24] VITALS: BP 124/58; PULSE 73; RESP 17; TEMP 98.7
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
--- NOTE | 2022-08-30 19:05 | MM ---
Reason for Exam: Screening (asymptomatic). Last mammogram was performed 1 year(s) and 2 month(s) ago. Patient History: Menarche at age 12. Patient has no children. Postmenopausal. Patient used Progesterone for 5 years. Unspecified Hormone for 3 years from age 41 until age 44. Maternal cousin had breast cancer. Maternal aunt had breast cancer. Mother had breast cancer, age 40. Risk Values: [place] 5 year model risk: 2.9%. NCI Lifetime model risk: 13.5%. Prior Study Comparison: 10/02/2018 Bilateral Screening Mammogram, [facility]. 03/02/2020 Bilateral Screening Mammogram, [facility]. 06/28/2021 Bilateral Screening Mammogram, [facility]. Tissue Density: The breast tissue is heterogeneously dense. This may lower the sensitivity of mammography. Findings: Analyzed By CAD. Pattern is stable. A focal asymmetries in the subareolar right breast. Additional asymmetric densities in the upper outer mid right breast. These appear stable from comparison. No significant interval changes are evident. No suspicious groups of microcalcifications, spiculated or lobular masses, architectural distortion or other secondary signs of malignancy are mammographically apparent. Overall Assessment: Benign, BI-RAD 2 Management: Screening Mammogram of both breasts in 1 year. A negative mammogram report should not preclude additional follow up of suspicious palpable abnormalities. Patient should continue monthly self breast exam. A clinical breast exam by your physician is recommended on an annual basis and results should be correlated with mammographic findings. Electronically signed and approved by: Jason Gallardo D.O. Radiologis
== END ==
LOC: WWCWWP 14:13
PROVIDERS: ATTEND Obstetrics & Gynecology
DX: Z12.31 Encounter for screening mammogram for malignant neoplasm of breast (principal); Z01.411 Encounter for gynecological examination (general) (routine) with abnormal findings; K21.9 Gastro-esophageal reflux disease without esophagitis; E78.5 Hyperlipidemia, unspecified; M19.90 Unspecified osteoarthritis, unspecified site; Z88.5 Allergy status to narcotic agent; Z88.8 Allergy status to other drugs, medicaments and biological substances; M85.80 Other specified disorders of bone density and structure, unspecified site
CPT/HCPCS: 77063; 77067

== ENCOUNTER → 2023-10-03 | Outpatient (CLI) | payer MEDICARE, OTHER ==
[2023-10-03 10:34] VITALS: BP 143/81; PULSE 71; RESP 16; TEMP 97.9
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
== END ==
LOC: WWCWWP 10:16
PROVIDERS: ATTEND Obstetrics & Gynecology
DX: Z12.31 Encounter for screening mammogram for malignant neoplasm of breast (principal); M85.80 Other specified disorders of bone density and structure, unspecified site; Z78.0 Asymptomatic menopausal state; Z88.5 Allergy status to narcotic agent; Z88.4 Allergy status to anesthetic agent; Z80.3 Family history of malignant neoplasm of breast
CPT/HCPCS: 77063; 77067

== ENCOUNTER → 2023-10-29 | Outpatient (CLI) | payer MEDICARE | LOC: LABWHC1 11:42 | PROVIDERS: ATTEND Internal Medicine Gastroenterology | DX: K50.00 Crohn's disease of small intestine without complications (principal) | CPT/HCPCS: 36415; 80053; 85025 ==

== ENCOUNTER 2023-11-09 07:00 | Day surgery (SDC) | payer MEDICARE ==
[2023-11-09] MEDS ORDERED: PROPOFOL 10 MG/ML 20 ML VIAL IV ONE (07:54)
[2023-11-09] MEDS ORDERED: LIDOCAINE HCL/PF 20 MG/ML 10 ML AMP ONE (07:54)
[2023-11-09] MEDS ORDERED: LACTATED RINGERS 1,000 ML BAG ONE (07:54)
--- NOTE | 2023-11-09 15:58 | PCN ---
PROCEDURE NOTE REQUESTING PHYSICIAN: Dr. Radha Mccrary. BRIEF HISTORY: The patient is a 63-year-old pleasant white female scheduled for an upper endoscopy as well as colonoscopy as a part of evaluation of longstanding history of GERD and history of Crohn ileitis diagnosed several years ago. She is presently maintained on Pentasa 1 g 4 times daily. She is scheduled for a colonoscopy as a part of screening for high risk of colon cancer. PROCEDURES PERFORMED: 1. EGD with biopsy. 2. Colonoscopy with biopsy. PREOPERATIVE DIAGNOSES: GERD and history of Crohn disease/screening for colon cancer. ANESTHESIA: IV sedation per Anesthesia. DESCRIPTION OF PROCEDURE: After informed consent was obtained from the patient, she was brought in to the endoscopy unit. IV conscious sedation was administered by Anesthesia under continuous monitoring. Initially, upper endoscopy was done. The Olympus CF-180 video endoscope was inserted into the mouth and esophagus intubated without any difficulty and was gradually advanced into the stomach and duodenum and carefully examined. The bulb and the second part of the duodenum appeared normal. The scope at this time was withdrawn through the stomach, adequately insufflated with air and upon careful examination mucosa of the antrum had mild diffuse gastritis and biopsies for H pylori were done. Body of the stomach appeared normal and on retroflexion cardia and the fundus appeared normal. Scope was then withdrawn through the esophagus. The GE junction was located at 40 cm from the incisors. It appeared regular with no erythema, erosions, or ulcerations. The entire length of esophagus appeared normal and the patient tolerated the procedure well. She continued to remain sedated. At this time, a colonoscopy was done. Digital rectal examination was normal. The Olympus CF-180 video colonoscope was then inserted in the rectum, gradually advanced into the cecum. Careful examination was performed as the scope was gradually being withdrawn. The ileocecal valve was visualized and appeared normal. Terminal ileum was intubated and 20 cm of the terminal ileum was visualized and scattered erosions were identified. No ulcerations seen. Biopsies were done from the terminal ileum. Rest of the cecum, ascending colon, transverse colon, descending colon, sigmoid colon, and rectum appeared normal. In the rectum, retroflexion was performed, small internal hemorrhoids were noted. The patient tolerated the procedure well. IMPRESSION: 1. Upper endoscopy revealed. a. Mild antral gastritis. b. No evidence of esophagitis or peptic ulcer disease. 2. Colonoscopy revealed scattered erosions in the terminal ileum consistent with mild Crohn ileitis and small internal hemorrhoids. RECOMMENDATIONS: Findings of this examination were discussed with the patient as well as her family. She was advised to follow up with the biopsy results. Continue current medication and recommend a repeat colonoscopy in 5 years. MMODL / IJN: [id number] /
== END 2023-11-09 09:00 ==
LOC: ORWHC2ENDO 07:00
PROVIDERS: ATTEND Internal Medicine Gastroenterology
DX: K29.50 Unspecified chronic gastritis without bleeding (principal); K50.00 Crohn's disease of small intestine without complications; K21.9 Gastro-esophageal reflux disease without esophagitis; K52.9 Noninfective gastroenteritis and colitis, unspecified; E78.5 Hyperlipidemia, unspecified; Z79.899 Other long term (current) drug therapy
CPT/HCPCS: 43239; 45380; 88305; 88342